=== PATIENT | female | born 1945 | race Caucasian/White ===

== ENCOUNTER 2017-05-14 13:54 | Emergency (ER) | payer MEDICARE, OTHER ==
[~2017-05-14] VITALS: Ht 160 cm; Wt 63.5 kg
[~2017-05-14 13:54] MED LIST: ALBI30PE SC; AMLO2.5T PO; AMLO5TAB2 GT; AMLO5TAB2 PO; ASP81CT PO; ASP81TEC PO; ASPI-84 PO; ATOR40TA70 PO; CIPR500T4 PO; DICL75TA2 PO; DIVA250T4 PO; DULO30CA3 PO; DULO60CA6; GLIP5TAB13 PO; HCT25T PO; HYDR-34 PO; HYDR-707 PO; HYDR1TAB PO; LINA5TAB PO; LORA0.5T PO; LVT.025T PO; MELO7.5T PO; METF-380 PO; NAPR500T72 PO; OLME20TA21 PO; SERT50TA2 PO; SIMV40TA2 PO
--- NOTE | 2017-05-14 14:14 | ED Integumentary General ---
General Stated Complaint: POSS INSECT BITE LEFT FOOT Source: patient, family Exam Limitations: no limitations History of Present Illness Time seen by provider: 14:08 Initial Comments This 72-year-old white female presents after sustaining a puncture wound, a sting, or a bite to the medial plantar surface of her left forefoot shortly prior to presentation emergency department. Patient has noted a 4 cm diameter area of erythema and tenderness surrounding an apparent puncture wound to the painful area. The patient was outside barefoot at the time of the injury. There is been no ascending lymphedema. There is no associated shortness of breath or respiratory distress. The patient is uncertain what caused the injury. The patient believes that her tetanus immunization is out of date. Allergies and Home Medications Allergies Coded Allergies: cortisone (Unverified Allergy, Mild, NAUSEA, 02/08/10) amoxicillin (Unverified Adverse Reaction, Severe, HIVES, 02/08/10) Home Medications Albiglutide 30 Mg/0.5 Ml Pen.injctr, 30 MG SC WEEK, #4 (Reported) Amlodipine Besylate 5 Mg Tab, 5 MG GT DAILY, (Reported) Atorvastatin Calcium 40 Mg Tablet, 40 MG PO HS, (Reported) Ciprofloxacin HCl 500 Mg Tablet, 500 MG PO BID, #14 Prescribed by: MATT PRICE on 09/26/16 2110 Divalproex Sodium 250 Mg Tablet.dr, 1 EACH PO BID, (Reported) Glipizide 5 Mg Tablet, 1 EACH PO BID, (Reported) Hydrochlorothiazide 25 Mg Tab, 25 MG PO DAILY, (Reported) Hydrocodone Bit/Acetaminophen 1 Ea Tablet, 1 EA PO Q4H, #1 Prescribed by: KASSIE KONG on 01/19/14 1220 Levothyroxine Sodium 25 Mcg Tablet, 25 MCG PO DAILY, Ref 0 (Reported) Metformin Hcl 1,000 Mg Tablet, 1,000 MG PO BID, Ref 0 (Reported) Constitutional: No chills, No fever EENTM: No blurred vision Respiratory: No cough, No short of breath Cardiovascular: No chest pain, No palpitations Gastrointestinal: No abdominal pain, No diarrhea, No vomiting Genitourinary: no symptoms reported : No Musculoskeletal: No back pain Skin: see HPI, rash, other (4 cm area of erythema over the medial aspect of the mid forefoot on the left foot. There is an apparent puncture wound to the central portion of the erythematous area.) Psychiatric/Neurological: No Symptoms Reported Endocrine: No Symptoms Reported Past Loakgre-Rqhzti-Ajfmms Hx Patient Social History Recent Foreign Travel: No Contact w/Someone Who Travel: No Recent Hopitalizations: No Immunizations Up To Date Date of Pneumonia Vaccine: Jul 27, 2011 Seasonal Allergies Seasonal Allergies: No Surgeries HX Surgeries: Yes (HEART CATH, FOOT SURGERY) Surgeries: Appendectomy, Hysterectomy Respiratory Hx Respiratory Disorders: No Cardiovascular Hx Cardiac Disorders: Yes (HIGH CHOLESTEROL) Neurological Hx Neurological Disorders: No Reproductive System Hx Reproductive Disorders: No Sexually Transmitted Disease: No Genitourinary Hx Genitourinary Disorders: No Gastrointestinal Hx Gastrointestinal Disorders: No Musculoskeletal Hx Musculoskeletal Disorders: Yes (ARTHRITIS) Endocrine Hx Endocrine Disorders: Yes Endocrine Disorders: Diabetes, Non-Insulin dep HEENT HX ENT Disorders: No Cancer Hx Cancer: No Psychosocial Hx Psychiatric Problems: Yes Behavioral Health Disorders: Anxiety, Depression Integumentary HX Skin/Integumentary Disorder: No Blood Transfusions Hx Blood Disorders: No Adverse Reaction to a Blood Tr: No Reviewed Nursing Assessment Reviewed/Agree w Nursing PMH: Yes Family Medical History Significant Family History: No Pertinent Family Hx Physical Exam Vital Signs Vital Sign - Last 12Hours 05/14/17 14:24 Temp 98.6 Pulse 84 Resp 18 B/P (MAP) 152/84 Pulse Ox 97 Capillary Refill : General Appearance: WD/WN, no apparent distress HEENT: normal ENT inspection Neck: normal inspection Cardiovascular: regular rate, rhythm Respiratory: lungs clear Gastrointestinal: non tender Back: normal inspection Extremities: normal range of motion, non-tender Neurologic/Psychiatric: no motor/sensory deficits, normal mood/affect Skin: normal color, warm/dry, other (4 cm erythematous area over the medial aspect left forefoot with a central puncture wound.) Skin Problem Location: lower extremities Skin Problem Character: erythema, warm Progress/Results/Core Measures Results/Orders My Orders Orders - MARSHA MARSH MD Diphenhydramine Injection (Benadryl Inje (05/14/17 14:15) Dipht,Pertuss(Acell),Tet Adult (Boostrix (05/14/17 14:15) Foot, Left, 3 Views (05/14/17 14:06) Medications Given in ED Current Medications Medications Dose Ordered Sig/Zari Route Start Time Stop Time Status Last Admin Dose Admin Diphenhydramine HCl 25 mg ONCE ONCE IM 05/14/17 14:15 05/14/17 14:16 DC 05/14/17 14:39 25 MG Vital Signs/I&O Vital Sign - Last 12Hours 05/14/17 14:24 Temp 98.6 Pulse 84 Resp 18 B/P (MAP) 152/84 Pulse Ox 97 Progress Note : Time: 14:14 Progress Note The patient received 25 mg of Benadryl IM. She was offered TDap for her tetanus immunization. 2:54 pm The patient declined tetanus update. X-ray was taken of her left foot which failed to demonstrate evidence of radiopaque foreign body. The patient was symptomatically improved with the Benadryl. I recommended that she continue with Benadryl at home 25-50 mg every 3-4 hours as needed. I invited her to return to emergency should any further problems or questions. Departure Impression Impression: Primary Impression: Insect sting Qualified Codes: T63.481A - Toxic effect of venom of other arthropod, accidental (unintentional), initial encounter Disposition: 01 HOME, SELF-CARE Condition: Improved Departure-Patient Inst. Decision time for Depature: 14:56 Referrals: MARJ DELANEY MD (PCP/Family) Primary Care Physician Patient Instructions: Insect Bites and Stings (DC) Add. Discharge Instructions: Benadryl as prescribed. Return if have any further questions or problems. Follow-up with your caregivers on Wednesday. MARSHA MARSH MD May 14, 2017 14:14
[2017-05-14] MEDS ORDERED: TETANUS,DIPTH,PERTUSS P/F (BOOSTRIX) 0.5 ML VIAL IM ONE (14:15)
[2017-05-14] MEDS ORDERED: diphenhydrAMINE 50 MG/ML INJ (BENADRYL) IM ONE (14:15)
[2017-05-14 15:20] VITALS: BP 142/80
--- NOTE | 2017-05-14 15:31 | Diagnostic Imaging Report ---
INDICATION: Left foot pain after potential penetrating trauma. COMPARISON: None available. TECHNIQUE: Three views of the left foot were performed. FINDINGS AND IMPRESSION: 1. No radiopaque foreign body. 2. No fracture or osseous erosion to suggest osteomyelitis. 3. Mild degenerative changes at the tarsal/metatarsal articulations. Dictated by: Dictated on workstation # [id number]
== END 2017-05-14 15:20 | disposition home or self-care (01) ==
LOC: EDUNIT# 13:54 → ER 13:57
DX: T63.481A Toxic effect of venom of other arthropod, accidental (unintentional), initial encounter (principal); E78.00 Pure hypercholesterolemia, unspecified; M19.90 Unspecified osteoarthritis, unspecified site; E11.9 Type 2 diabetes mellitus without complications; F41.9 Anxiety disorder, unspecified; F32.9 Major depressive disorder, single episode, unspecified; Z90.710 Acquired absence of both cervix and uterus; Z90.89 Acquired absence of other organs; Z79.84 Long term (current) use of oral hypoglycemic drugs
CPT/HCPCS: 73630; 96372; 99284

== ENCOUNTER 2017-05-16 12:11 | Emergency (ER) | payer MEDICARE, OTHER ==
[~2017-05-16] VITALS: Ht 160 cm; Wt 63.5 kg
--- NOTE | 2017-05-16 14:52 | ED Lower Extremity ---
General Chief Complaint: Lower Extremity Stated Complaint: LEFT FOOT PAIN Nursing Triage Note: pt reports she stepped on something on wednesday evening. left foot swelling immediately. she was seen in ER approx 1 hr after incident. she was given bendaryl injection. she has been taking benadryl at home. she reports redness , swelling et itching worsening. Nursing Sepsis Screen: No Definite Risk Source: patient Exam Limitations: no limitations History of Present Illness Time seen by provider: 14:47 Initial Comments The patient is a 72-year-old white female who was here Wednesday evening or this same problem. She reports that she was barefoot in the grass of her lawn and felt a sharp stinging sensation along the arch of her left foot at the proximal metatarsal level. She was given a shot of Benadryl here and has been taking 50 mg of Benadryl by mouth every 4 hours. She is frankly about the itching at this point. She reports that the erythema has spread somewhat over the dorsum of her foot. She protests that she is allergic to cortisone. Onset: last week Pain/Injury Location: left foot Method of Injury: other (suspect bee sting) Allergies and Home Medications Allergies Coded Allergies: cortisone (Unverified Allergy, Mild, NAUSEA, 02/08/10) amoxicillin (Unverified Adverse Reaction, Severe, HIVES, 02/08/10) Home Medications Albiglutide 30 Mg/0.5 Ml Pen.injctr, 30 MG SC WEEK, #4 (Reported) Amlodipine Besylate 5 Mg Tab, 5 MG GT DAILY, (Reported) Atorvastatin Calcium 40 Mg Tablet, 40 MG PO HS, (Reported) Ciprofloxacin HCl 500 Mg Tablet, 500 MG PO BID, #14 Prescribed by: MATT PRICE on 09/26/160 Divalproex Sodium 250 Mg Tablet.dr, 1 EACH PO BID, (Reported) Glipizide 5 Mg Tablet, 1 EACH PO BID, (Reported) Hydrochlorothiazide 25 Mg Tab, 25 MG PO DAILY, (Reported) Hydrocodone Bit/Acetaminophen 1 Ea Tablet, 1 EA PO Q4H, #1 Prescribed by: KASSIE KONG on 01/19/14 1220 Levothyroxine Sodium 25 Mcg Tablet, 25 MCG PO DAILY, Ref 0 (Reported) Metformin Hcl 1,000 Mg Tablet, 1,000 MG PO BID, Ref 0 (Reported) Constitutional: see HPI EENTM: no symptoms reported Respiratory: no symptoms reported Cardiovascular: no symptoms reported Gastrointestinal: no symptoms reported Genitourinary: no symptoms reported Musculoskeletal: no symptoms reported Skin: see HPI Psychiatric/Neurological: No Symptoms Reported Past Xdwzmhq-Eqoibb-Sajhos Hx Patient Social History Recent Foreign Travel: No Contact w/Someone Who Travel: No Recent Infectious Disease Expo: No Recent Hopitalizations: No Immunizations Up To Date Date of Pneumonia Vaccine: Jul 27, 2011 Seasonal Allergies Seasonal Allergies: No Surgeries HX Surgeries: Yes (HEART CATH, FOOT SURGERY) Surgeries: Appendectomy, Hysterectomy, Orthopedic Respiratory Hx Respiratory Disorders: No Cardiovascular Hx Cardiac Disorders: Yes (HIGH CHOLESTEROL) Cardiac Disorders: High Cholesterol, Hypertension Neurological Hx Neurological Disorders: No Reproductive System Hx Reproductive Disorders: No Sexually Transmitted Disease: No Genitourinary Hx Genitourinary Disorders: No Gastrointestinal Hx Gastrointestinal Disorders: No Musculoskeletal Hx Musculoskeletal Disorders: Yes (ARTHRITIS) Endocrine Hx Endocrine Disorders: Yes Endocrine Disorders: Hypothyroidsim, Diabetes, Non-Insulin dep HEENT HX ENT Disorders: No Cancer Hx Cancer: No Psychosocial Hx Psychiatric Problems: Yes Behavioral Health Disorders: Anxiety, Depression Integumentary HX Skin/Integumentary Disorder: No Blood Transfusions Hx Blood Disorders: No Adverse Reaction to a Blood Tr: No Family Medical History Significant Family History: No Pertinent Family Hx Physical Exam Vital Signs Vital Sign - Last 12Hours 05/16/17 12:46 Temp 98.7 Pulse 84 Resp 16 B/P (MAP) 183/79 Capillary Refill : Less Than 3 Seconds General Appearance: mild distress HEENT: normal ENT inspection Neck: full range of motion Cardiovascular: normal peripheral pulses Respiratory: chest non-tender, lungs clear, normal breath sounds, no respiratory distress, no accessory muscle use Comments Examination of the left foot shows a small papule along the medial border of the foot at the sole plate at approximately the proximal first metatarsal. There is erythema extending to the medial sole and extending dorsally to the fourth metatarsal. Proximally it reaches the level of the tarsal bones. This has the appearance of a bee sting with localized urticaria Progress/Results/Core Measures Results/Orders Vital Signs/I&O Vital Sign - Last 12Hours 05/16/17 12:46 Temp 98.7 Pulse 84 Resp 16 B/P (MAP) 183/79 Blood Pressure Mean: 113 Departure Impression Impression: Primary Impression: localized histamine reaction most likely bee sting Disposition: HOME, SELF-CARE Condition: Stable/Unchanged Departure-Patient Inst. Decision time for Depature: 14:52 Referrals: MARJ DELANEY MD (PCP/Family) Primary Care Physician Add. Discharge Instructions: All discharge instructions reviewed with patient and/or family. Voiced understanding. 1.continue cool compresses 2.apply triamcinolone every 6 hours 3.continue Benadryl 4.this may take several days to resolve. Scripts Triamcinolone Acetonide (Triamcinolone Acetonide 0.5% Ointment) 15 Gm Oint 15 GM TP 4 TIMES A DAY, #1 TUBE Prov: ANDERSON BELL MD 05/16/17 ANDERSON BELL MD May 16, 2017 14:52
[2017-05-16] MEDS ORDERED: TRIA15OI9 TP (14:55)
[2017-05-16 15:24] VITALS: BP 183/79
== END 2017-05-16 15:23 | disposition home or self-care (01) ==
LOC: EDUNIT# 12:11 → ER 12:12
DX: Z04.3 Encounter for examination and observation following other accident (principal)
CPT/HCPCS: 99283

== ENCOUNTER 2019-07-06 09:58 | Emergency (ER) | payer MEDICARE, OTHER ==
[~2019-07-06] VITALS: Ht 161 cm; Wt 72.0 kg
[~2019-07-06 09:58] MED LIST changes: -ALBI30PE SC; +ALBI30PE3 SC; +TRIA15OI9 TP
[2019-07-06] MEDS ORDERED: DEXAMETHASONE 10 MG/ML (DECADRON) 1 ML VIAL IM ONE (10:30)
[2019-07-06] MEDS ORDERED: DOXY100T2 PO (10:31)
--- NOTE | 2019-07-06 10:31 | ED Integumentary General ---
General Chief Complaint: Bite-Animal/Human/Insect Stated Complaint: WASP STING Nursing Triage Note: pt presents to ed with complaints of l upper arm pain/redness/swelling after being stung by a wasp on 07/04/19 when she was near her trashcan. pt reports she has used over the counter anti itch cream with no relief. Source: patient Exam Limitations: no limitations History of Present Illness Date Seen by Provider: Jul 06, 2019 Time Seen by Provider: 10:28 Initial Comments to ER with reports of redness swelling itching and pain to the medial aspect of the left upper arm and the dorsal aspect proximal phalanx right middle finger where she was stung by a wasp 3 days ago. Timing/Duration: constant Severity: moderate Location: hands Associated Symptoms: denies symptoms Allergies and Home Medications Allergies Coded Allergies: cortisone (Unverified Allergy, Mild, NAUSEA, 02/08/10) amoxicillin (Unverified Adverse Reaction, Severe, HIVES, 02/08/10) Home Medications Amlodipine Besylate 5 Mg Tab, 5 MG GT DAILY, (Reported) Atorvastatin Calcium 40 Mg Tablet, 40 MG PO HS, (Reported) Divalproex Sodium 250 Mg Tablet.dr, 1 EACH PO BID, (Reported) Glipizide 5 Mg Tablet, 1 EACH PO BID, (Reported) Hydrochlorothiazide 25 Mg Tab, 25 MG PO DAILY, (Reported) Hydrocodone Bit/Acetaminophen 1 Ea Tablet, 1 EA PO Q4H Prescribed by: KASSIE KONG on 01/19/14 1220 Levothyroxine Sodium 25 Mcg Tablet, 25 MCG PO DAILY, (Reported) Metformin Hcl 1,000 Mg Tablet, 1,000 MG PO BID, (Reported) Patient Home Medication List Home Medication List Reviewed: Yes Review of Systems Review of Systems Constitutional: see HPI EENTM: see HPI Respiratory: no symptoms reported Cardiovascular: no symptoms reported Genitourinary: no symptoms reported Musculoskeletal: no symptoms reported Skin: see HPI Psychiatric/Neurological: No Symptoms Reported Past Jpilknp-Uzaixz-Vxontp Hx Patient Social History Alcohol Use: Denies Use Recreational Drug Use: No Smoking Status: Never a Smoker Recent Foreign Travel: No Contact w/Someone Who Travel: No Recent Infectious Disease Expo: No Recent Hopitalizations: No Physical Abuse: No Sexual Abuse: No Mistreated: No Fear: No Immunizations Up To Date Date of Pneumonia Vaccine: Jul 27, 2011 Seasonal Allergies Seasonal Allergies: No Past Medical History Surgeries: Yes (HEART CATH, FOOT SURGERY) Appendectomy, Hysterectomy, Orthopedic Respiratory: Yes Chronic Bronchitis Cardiac: Yes (HIGH CHOLESTEROL) High Cholesterol, Hypertension Neurological: No Reproductive Disorders: No Sexually Transmitted Disease: No Genitourinary: Yes ("weak bladder") Gastrointestinal: No Musculoskeletal: Yes (ARTHRITIS) Endocrine: Yes Hypothyroidsim, Diabetes, Non-Insulin dep Cancer: No Psychosocial: Yes Anxiety, Depression Integumentary: No Blood Disorders: No Adverse Reaction/Blood Tranf: No Family Medical History No Pertinent Family Hx Physical Exam Vital Signs Vital Signs - First Documented 07/06/19 10:07 Temp 37.0 Pulse 96 Resp 16 B/P (MAP) 165/113 (130) Pulse Ox 97 Capillary Refill : Less Than 3 Seconds General Appearance: no apparent distress Respiratory: no respiratory distress, no accessory muscle use Extremities: normal range of motion, non-tender, other (there is a large hand- sized area to the medial aspect of the left upper arm well demarcated without lymphangitis. This is erythematous and somewhat indurated/swollen. Suspect this to be localized allergic reaction from the wasp sting rather than cellulitis.) Neurologic/Psychiatric: alert, normal mood/affect, oriented x 3 Skin: normal color, warm/dry Progress/Results/Core Measures Results/Orders My Orders Orders - DELFINA BENJAMIN APRN Dexamethasone Injection (Decadron Inject (07/06/19 10:30) Vital Signs/I&O 07/06/19 10:07 Temp 37.0 Pulse 96 Resp 16 B/P (MAP) 165/113 (130) Pulse Ox 97 Blood Pressure Mean: 130 Departure Impression Primary Impression: Bee sting Qualified Codes: T63.441A - Toxic effect of venom of bees, accidental (unintentional), initial encounter Disposition: HOME, SELF-CARE Condition: Stable Departure-Patient Inst. Decision time for Depature: 10:30 Referrals: MARJ DELANEY MD (PCP/Family) Primary Care Physician Patient Instructions: Insect Bites and Stings (DC) Add. Discharge Instructions: 1. Cool compresses to the area. Take one Benadryl every 6 hours as needed for itching. This will also help reduce the redness and swelling. Antibiotics as directed. All discharge instructions reviewed with patient and/or family. Voiced understanding. Scripts Doxycycline Hyclate (Doxycycline Hyclate) 100 Mg Tablet 100 MG PO BID, #10 TAB 0 Refills Prov: DELFINA BENJAMIN APRN 07/06/19 DELFINA BENJAMIN APRN Jul 06, 2019 10:31
[2019-07-06 10:47] VITALS: BP 153/98
== END 2019-07-06 10:47 | disposition home or self-care (01) ==
LOC: EDUNIT# 09:58 → ER 09:59
DX: T63.441A Toxic effect of venom of bees, accidental (unintentional), initial encounter (principal); J42 Unspecified chronic bronchitis; I10 Essential (primary) hypertension; E78.00 Pure hypercholesterolemia, unspecified; E03.9 Hypothyroidism, unspecified; E11.9 Type 2 diabetes mellitus without complications; F41.9 Anxiety disorder, unspecified; F32.9 Major depressive disorder, single episode, unspecified; Z88.1 Allergy status to other antibiotic agents; Z88.8 Allergy status to other drugs, medicaments and biological substances; Z79.84 Long term (current) use of oral hypoglycemic drugs; Z90.49 Acquired absence of other specified parts of digestive tract; Z90.710 Acquired absence of both cervix and uterus
CPT/HCPCS: 99284

== ENCOUNTER 2021-03-24 22:31 | Observation (INO) | payer MEDICARE, OTHER ==
[~2021-03-24] VITALS: Ht 160 cm; Wt 80.4 kg
[~2021-03-24 22:31] MED LIST changes: -CIPR500T4 PO; +CIPR500T5 PO; +DOXY100T2 PO
[2021-03-24] MEDS ORDERED: INSU100I14 SC (22:39)
[2021-03-24] MEDS ORDERED: LISI10TA25 PO (22:39)
[2021-03-24] MEDS ORDERED: INSU100I32 SC (22:39)
--- NOTE | 2021-03-24 22:50 | ED General ---
General Chief Complaint: Glucose Problems Stated Complaint: BLOOD SUGAR LOW,30-40,EMS GAVE PT GLUCOSE Source of Information: Patient Exam Limitations: No Limitations History of Present Illness Date Seen by Provider: March 24, 2021 Time Seen by Provider: 22:30 Initial Comments Patient presents ER by private conveyance with her grandson chief complaint that she had a fall he responded immediately to her and noticed that her blood sugar was low. He summonsed EMS and they gave her some glucose oral as well as peanut butter and got her blood sugar up from 38-40. He decided then to transport her by POV to the ER. No history of fevers chills nausea vomiting diarrhea constipation cough or shortness of air. Allergies and Home Medications Allergies Coded Allergies: cortisone (Unverified Allergy, Mild, NAUSEA, 02/08/10) amoxicillin (Unverified Adverse Reaction, Severe, HIVES, 02/08/10) Home Medications Atorvastatin Calcium 40 Mg Tablet, 40 MG PO HS, (Reported) Last Action: Reviewed Glipizide 10 Mg Tablet, 10 MG PO DAILY, (Reported) Last Action: Reviewed Levothyroxine Sodium 25 Mcg Tablet, 25 MCG PO DAILY, (Reported) Lisinopril 10 Mg Tablet, DAILY, (Reported) Last Action: Edited Patient Home Medication List Home Medication List Reviewed: Yes Review of Systems Review of Systems Constitutional: No chills; dizziness; No fever; malaise EENTM: No ear discharge, No ear pain Respiratory: No cough, No short of breath Cardiovascular: No chest pain, No edema Gastrointestinal: No abdominal pain, No nausea, No vomiting Genitourinary: No discharge, No dysuria Musculoskeletal: No back pain, No joint pain All Other Systems Reviewed Negative Unless Noted: Yes Past Njbdwwb-Lplsri-Esozvq Hx Patient Social History Alcohol Use: Denies Use Smoking Status: Never a Smoker Recent Hopitalizations: No Immunizations Up To Date Date of Pneumonia Vaccine: Jul 27, 2011 Seasonal Allergies Seasonal Allergies: No Past Medical History Surgeries: Yes (HEART CATH, FOOT SURGERY) Appendectomy, Hysterectomy, Orthopedic Respiratory: Yes Chronic Bronchitis Cardiac: Yes (HIGH CHOLESTEROL) High Cholesterol, Hypertension Neurological: No Reproductive Disorders: No Sexually Transmitted Disease: No Genitourinary: Yes ("weak bladder") Gastrointestinal: No Musculoskeletal: Yes (ARTHRITIS) Endocrine: Yes Hypothyroidsim, Diabetes, Non-Insulin dep Cancer: No Psychosocial: Yes Anxiety, Depression Integumentary: No Blood Disorders: No Adverse Reaction/Blood Tranf: No Family Medical History No Pertinent Family Hx Physical Exam Vital Signs Vital Signs - First Documented 03/24/21 22:36 Temp 36.3 Pulse 80 Resp 18 B/P (MAP) 186/92 (123) Pulse Ox 99 O2 Delivery Room Air Capillary Refill : Height, Weight, BMI Height: 5'3.00" Weight: 140lbs. oz. 63.383279hy; 27.00 BMI Method:Stated General Appearance: No Apparent Distress, Mild Distress Eyes: Bilateral Eye Normal Inspection, Bilateral Eye PERRL, Bilateral Eye EOMI HEENT: TMs Normal, Normal ENT Inspection, Pharynx Normal, Moist Mucous Membranes Neck: Full Range of Motion, Normal Inspection Respiratory: Lungs Clear, Normal Breath Sounds, No Accessory Muscle Use, No Respiratory Distress Cardiovascular: Regular Rate, Rhythm, No Edema, Normal Peripheral Pulses Gastrointestinal: Non Tender, Soft Extremity: Normal Capillary Refill, Normal Inspection Neurologic/Psychiatric: Alert, Oriented x3 Skin: Normal Color, Warm/Dry Progress/Results/Core Measures Suspected Sepsis SIRS Temperature: Pulse: Respiratory Rate: Laboratory Tests 03/24/21 22:40: White Blood Count 10.0 Blood Pressure / Mean: Laboratory Tests 03/24/21 22:40: Creatinine 0.81, Platelet Count 209, Total Bilirubin 0.4 Results/Orders Lab Results Laboratory Tests Test 03/24/21 22:39 03/24/21 22:40 03/24/21 23:20 03/25/21 00:16 Range/Units Glucometer 42 *L 116 H 70-110 MG/DL White Blood Count 10.0 4.3-11.0 10^3/uL Red Blood Count 4.76 3.80-5.11 10^6/uL Hemoglobin 14.3 11.5-16.0 g/dL Hematocrit 43 35-52 % Mean Corpuscular Volume 90 80-99 fL Mean Corpuscular Hemoglobin 30 25-34 pg Mean Corpuscular Hemoglobin Concent 33 32-36 g/dL Red Cell Distribution Width 12.3 10.0-14.5 % Platelet Count 209 130-400 10^3/uL Mean Platelet Volume 10.3 9.0-12.2 fL Immature Granulocyte % (Auto) 0 % Neutrophils (%) (Auto) 83 H 42-75 % Lymphocytes (%) (Auto) 9 L 12-44 % Monocytes (%) (Auto) 7 0-12 % Eosinophils (%) (Auto) 1 0-10 % Basophils (%) (Auto) 0 0-10 % Neutrophils # (Auto) 8.3 H 1.8-7.8 10^3/uL Lymphocytes # (Auto) 0.9 L 1.0-4.0 10^3/uL Monocytes # (Auto) 0.7 0.0-1.0 10^3/uL Eosinophils # (Auto) 0.1 0.0-0.3 10^3/uL Basophils # (Auto) 0.0 0.0-0.1 10^3/uL Immature Granulocyte # (Auto) 0.0 0.0-0.1 10^3/uL Sodium Level 144 135-145 MMOL/L Potassium Level 3.4 L 3.6-5.0 MMOL/L Chloride Level 105 98-107 MMOL/L Carbon Dioxide Level 24 21-32 MMOL/L Anion Gap 15 H 5-14 MMOL/L Blood Urea Nitrogen 22 H 7-18 MG/DL Creatinine 0.81 0.60-1.30 MG/DL Estimat Glomerular Filtration Rate > 60 BUN/Creatinine Ratio 27 Glucose Level 50 *L 70-105 MG/DL Calcium Level 9.9 8.5-10.1 MG/DL Corrected Calcium 9.7 8.5-10.1 MG/DL Total Bilirubin 0.4 0.1-1.0 MG/DL Aspartate Amino Transf (AST/SGOT) 54 H 5-34 U/L Alanine Aminotransferase (ALT/SGPT) 26 0-55 U/L Alkaline Phosphatase 61 40-136 U/L Total Protein 7.3 6.4-8.2 GM/DL Albumin 4.2 3.2-4.5 GM/DL Urine Color YELLOW Urine Clarity CLEAR Urine pH 6.0 5-9 Urine Specific Hines 1.025 H 1.016-1.022 Urine Protein NEGATIVE NEGATIVE Urine Glucose (UA) NEGATIVE NEGATIVE Urine Ketones NEGATIVE NEGATIVE Urine Nitrite POSITIVE H NEGATIVE Urine Bilirubin NEGATIVE NEGATIVE Urine Urobilinogen 0.2 < = 1.0 MG/DL Urine Leukocyte Esterase 2+ H NEGATIVE Urine RBC (Auto) NEGATIVE NEGATIVE Urine RBC NONE /HPF Urine WBC 10-25 H /HPF Urine Squamous Epithelial Cells 2-5 /HPF Urine Crystals NONE /LPF Urine Bacteria LARGE H /HPF Urine Casts NONE /LPF Urine Mucus NEGATIVE /LPF Urine Culture Indicated YES My Orders Orders - BYRON MACIAS Accucheck Stat ONCE (03/24/21 22:34) General/Regular (03/24/21 Dinner) Cbc With Automated Diff (03/24/21 22:41) Comprehensive Metabolic Panel (03/24/21 22:41) Ua Culture If Indicated (03/24/21 22:41) Chest 1 View, Ap/Pa Only (03/24/21 22:41) Ct Head/Cervical Spine Wo (03/24/21 22:41) Accucheck Stat ONCE (03/24/21 23:13) Urine Culture (03/25/21 00:16) Vital Signs/I&O 03/24/21 22:36 Temp 36.3 Pulse 80 Resp 18 B/P (MAP) 186/92 (123) Pulse Ox 99 O2 Delivery Room Air Capillary Refill : Point of Care Testing Finger Stick Blood Glucose: 42 Blood Glucose Action Taken: ERP NOTIFIED Progress Note : Time: 00:29 Progress Note After meal the patient's blood sugar went up to 116. We will recommend observing her for her hypoglycemia so we can get an MRI in the morning Departure Communication (Admissions) Time/Spoke to Admitting Phy: 00:[address] Bryant and she agrees to observation in ICU or stepdown if not available and consultation to trauma surgery. Imaging in the morning. D5 normal saline. Time/Spoke to Consulting Phy: 00:30 Discussed case with trauma surgeon on-call Dr. Patten and he agrees to consult on the case can MRI with and without IV contrast of the brain in the morning. Neurochecks and call him if anything changes in her neuro status. Impression Primary Impression: Hypoglycemia associated with diabetes Additional Impressions: Brain lesion (from injury) Fall Qualified Codes: W19.XXXA - Unspecified fall, initial encounter Disposition: ADMITTED INPATIENT Condition: Stable Admissions Decision to Admit Reason: Admit from ER (General) Decision to Admit/Date: March 24, 2021 Time/Decision to Admit Time: 23:00 Departure-Patient Inst. Referrals: MARJ DELANEY MD (PCP/Family) Primary Care Physician BYRON MACIAS March 24, 2021 22:50
[2021-03-24 22:55] LABS: BASOPHILS % (AUTO) 0 % (0-10); EOSINOPHILS # (AUTO) 0.1 10^3/uL (0.0-0.3); EOSINOPHILS % (AUTO) 1 % (0-10); HEMATOCRIT 43 % (35-52); HEMOGLOBIN 14.3 g/dL (11.5-16.0); LYMPHOCYTES # (AUTO) 0.9 10^3/uL (1.0-4.0); LYMPHOCYTES % (AUTO) 9 % (12-44); MEAN CORPUSCULAR HEMOGLOBIN 30 pg (25-34); MEAN CORPUSCULAR HGB CONC 33 g/dL (32-36); MEAN CORPUSCULAR VOLUME 90 fL (80-99); MEAN PLATELET VOLUME 10.3 fL (9.0-12.2); MONOCYTES # (AUTO) 0.7 10^3/uL (0.0-1.0); MONOCYTES % (AUTO) 7 % (0-12); NEUTROPHILS # (AUTO) 8.3 10^3/uL (1.8-7.8); NEUTROPHILS % (AUTO) 83 % (42-75); PLATELET COUNT 209 10^3/uL (130-400)
[2021-03-24 23:09] LABS: ALBUMIN 4.2 GM/DL (3.2-4.5); CHLORIDE 105 MMOL/L (98-107); POTASSIUM 3.4 MMOL/L (3.6-5.0); SODIUM 144 MMOL/L (135-145)
[2021-03-24 23:10] LABS: CALCIUM 9.9 MG/DL (8.5-10.1)
[2021-03-24 23:12] LABS: TOTAL PROTEIN 7.3 GM/DL (6.4-8.2)
[2021-03-24 23:13] LABS: BILIRUBIN,TOTAL 0.4 MG/DL (0.1-1.0); CARBON DIOXIDE 24 MMOL/L (21-32)
[2021-03-24 23:15] LABS: ALKALINE PHOSPHATASE 61 U/L (40-136); CREATININE SERUM 0.81 MG/DL (0.60-1.30); GFR ESTIMATED > 60
[2021-03-24] MEDS ORDERED: CATHETER FLUSH 10 ML SYR IV PRN (23:15)
[2021-03-24] MEDS ORDERED: IOHEXOL 350 MG/ML 100 ML (OMNIPAQUE 350) VIAL IV ONE (23:15)
[2021-03-24] MEDS ORDERED: HOLD METFORMIN - RECEIVED CONTRAST 20 ML VIAL IV SCH (23:15)
[2021-03-24] MEDS ORDERED: NS 100 ML (IVPB) BAG IV ONE (23:15)
[2021-03-24 23:16] LABS: BUN/CREATININE RATIO 27
[2021-03-24 23:18] LABS: ALANINE AMINOTRANSFERASE 26 U/L (0-55)
[2021-03-24 23:22] LABS: GLUCOSE 50 MG/DL (70-105)
[2021-03-25 00:25] LABS: BILIRUBIN,URINE NEGATIVE (NEGATIVE); CLARITY,URINE CLEAR; COLOR,URINE YELLOW; GLUCOSE, URINE (UA) NEGATIVE (NEGATIVE); KETONES,URINE NEGATIVE (NEGATIVE); LEUKOCYTE ESTERASE ,URINE 2+ (NEGATIVE); NITRITE,URINE POSITIVE (NEGATIVE); PROTEIN,URINE NEGATIVE (NEGATIVE)
[2021-03-25 00:44] LABS: BACTERIA,URINE LARGE /HPF
[2021-03-25] MEDS ORDERED: D5 1/2 NS 1000 ML IV SOLUTION 1,000 ML IV ONE (01:16)
[2021-03-25] MEDS ORDERED: D5 NS 1000 ML IV SOLUTION 1,000 ML IV SCH (01:30)
[2021-03-25] MEDS ORDERED: fentaNYL INJ 100 MCG/2 ML AMP IV PRN (01:30)
[2021-03-25] MEDS ORDERED: ONDANSETRON 4 MG/2 ML (SDV) Z0FRAN IV PRN (01:30)
[2021-03-25] MEDS ORDERED: GLIP10TA13 PO (02:57)
[2021-03-25 03:38] LABS: BASOPHILS % (AUTO) 0 % (0-10); EOSINOPHILS % (AUTO) 1 % (0-10); HEMATOCRIT 39 % (35-52); HEMOGLOBIN 13.1 g/dL (11.5-16.0); LYMPHOCYTES # (AUTO) 1.1 10^3/uL (1.0-4.0); LYMPHOCYTES % (AUTO) 14 % (12-44); MEAN CORPUSCULAR HEMOGLOBIN 30 pg (25-34); MEAN CORPUSCULAR HGB CONC 34 g/dL (32-36); MEAN CORPUSCULAR VOLUME 90 fL (80-99); MONOCYTES # (AUTO) 0.5 10^3/uL (0.0-1.0); MONOCYTES % (AUTO) 6 % (0-12); NEUTROPHILS # (AUTO) 6.5 10^3/uL (1.8-7.8); NEUTROPHILS % (AUTO) 79 % (42-75); PLATELET COUNT 203 10^3/uL (130-400); WHITE BLOOD COUNT 8.2 10^3/uL (4.3-11.0)
[2021-03-25 03:44] LABS: CHLORIDE 105 MMOL/L (98-107); POTASSIUM 4.1 MMOL/L (3.6-5.0); SODIUM 140 MMOL/L (135-145)
[2021-03-25 03:45] LABS: CALCIUM 9.2 MG/DL (8.5-10.1); GLUCOSE 233 MG/DL (70-105)
[2021-03-25 03:47] LABS: CARBON DIOXIDE 22 MMOL/L (21-32)
[2021-03-25 03:49] LABS: CREATININE SERUM 0.78 MG/DL (0.60-1.30); GFR ESTIMATED > 60
[2021-03-25 03:50] LABS: BUN/CREATININE RATIO 28
--- NOTE | 2021-03-25 06:08 | History & Physical-Hospitalist ---
History of Present Illness HPI/Chief Complaint CC: Hypoglycemia with fall questionable hemorrhagic stroke HPI: This is a 76yoWF clinic pt of Dr. Moncada who has a past medical history of DM who suffered some hypoglycemia last night, suffered a fall, presented to the ER, found to have a questionable hemorrhagic stroke in need of MRI to confirm. UTI was diagnosed, Rocephin given and home meds were restarted but I did lower her insulin dosing by half. She takes 40 units of Levemir and Novalog 12 units before meals. MRI will be completed and then if everything is within normal limits, will DC home. Source: patient Exam Limitations: no limitations Date Seen 03/25/21 Time Seen by a Provider: 09:00 Attending Physician Emily Bryant DO PCP Anshu Edwards MD Referring Physician Date of Admission Mar 25, 2021 at 00:45 Home Medications & Allergies Home Medications Reviewed patient Home Medication Reconciliation performed by pharmacy medication reconciliations quality technician and/or nursing. Patients Allergies have been reviewed. Allergies Allergies Coded Allergies cortisone (Unverified Allergy, Mild, NAUSEA, 02/08/10) amoxicillin (Unverified Adverse Reaction, Severe, HIVES, 02/08/10) Past Ooljscq-Ksbfjq-Aaclbk Hx Patient Social History Marrital Status: single Employed/Student: retired Tobacco Use?: No Smoking Status: Never a Smoker Use of E-Cig and/or Vaping dev: No Substance use?: No Alcohol Use?: No Pt feels they are or have been: No Immunizations Up To Date Date of Influenza Vaccine: Apr 08, 2020 First/Initial COVID19 Vaccinat: DATE UNKNOWN, BUT RECIEVED Second COVID19 Vaccination Lamberto: DATE UNKNOWN, BUT RECIEVED Tetanus Booster (TDap): Unknown Date of Pneumonia Vaccine: Jul 27, 2011 Seasonal Allergies Seasonal Allergies: No Current Status status: No status: No Advance Directives: No Communicates: Verbally Primary Language: Macedonian Preferred Spoken Language: Macedonian Is interpretation needed?: No Sensory deficits: Vision impairment Implanted or Applied Medical D: None Past Medical History Surgeries: Appendectomy, Hysterectomy, Orthopedic Chronic Bronchitis High Cholesterol, Hypertension Sexually Transmitted Disease: No Hypothyroidsim, Diabetes, Non-Insulin dep Anxiety, Depression Blood Disorders: No Adverse Reaction/Blood Tranf: No Family Medical History No Pertinent Family Hx Review of Systems Constitutional: see HPI, malaise, weakness Physical Exam Physical Exam Vital Signs Vital Signs - First Documented 03/24/21 22:36 Temp 36.3 Pulse 80 Resp 18 B/P (MAP) 186/92 (123) Pulse Ox 99 O2 Delivery Room Air Capillary Refill : Less Than 3 Seconds Height, Weight, BMI Height: 5'3.00" Weight: 140lbs. oz. 63.319690pz; 31.40 BMI Method:Stated General Appearance: No Apparent Distress, Chronically ill Eyes: Right Eye Normal Inspection, Right Eye PERRL HEENT: PERRL/EOMI, Normal ENT Inspection, Pharynx Normal, Moist Mucous Membranes Neck: Full Range of Motion, Normal Inspection, Non Tender Respiratory: Chest Non Tender, Lungs Clear, Normal Breath Sounds, No Accessory Muscle Use, No Respiratory Distress Cardiovascular: Regular Rate, Rhythm, No Edema, No Gallop, No JVD, No Murmur, Normal Peripheral Pulses Gastrointestinal: Normal Bowel Sounds, No Organomegaly, No Pulsatile Mass, Non Tender, Soft Back: Normal Inspection, No CVA Tenderness, No Vertebral Tenderness Extremity: Normal Capillary Refill, Normal Inspection, Normal Range of Motion, Non Tender, No Calf Tenderness, No Pedal Edema Neurologic/Psychiatric: Alert, Oriented x3, No Motor/Sensory Deficits, Normal Mood/Affect Skin: Normal Color, Warm/Dry Lymphatic: No Adenopathy Results Results/Procedures Labs Laboratory Tests 03/24/21 22:40 03/25/21 03:19 Patient resulted labs reviewed. Assessment/Plan Admission Diagnosis Assessment: Hypoglycemic episode with fall Questionable hemorrhagic CVA on CT scan awaiting MRI Acute UTI DM HTN Hypothyroidism Plan: MRI Decrease insulin Monitor closely Admission Status: Observation Diagnosis/Problems Diagnosis/Problems (1) Hypoglycemia associated with diabetes Status: Acute (2) Brain lesion (from injury) Status: Acute (3) Fall Status: Acute Qualifiers: Encounter type: initial encounter Qualified Codes: W19.XXXA - Unspecified fall, initial encounter (4) Urinary tract infection Status: Acute (5) Anxiety and depression Status: Acute EMILY BRYANT DO Mar 25, 2021 06:08
[2021-03-25] MEDS ORDERED: DEXTROSE 50% 50 ML (IMS) SYR IV PRN (06:45)
--- NOTE | 2021-03-25 06:50 | Diagnostic Imaging Report ---
CHEST 1 VIEW, AP/PA ONLY Indication: Fall Comparison: 09/26/2016 Findings: No focal airspace disease in the visualized lungs. Please note that the posterior lower lobes are poorly evaluated by portable radiography. No pleural effusion or pneumothorax. Normal cardiomediastinal silhouette. No displaced clavicular fracture. No discrete rib fracture. Impression: 1. No acute cardiopulmonary process by portable radiography. Dictated by: Dictated on workstation # [id number]
--- NOTE | 2021-03-25 07:12 | Diagnostic Imaging Report ---
PROCEDURE: CT head and CT cervical spine without contrast. TECHNIQUE: Multiple contiguous axial images were obtained through the brain and cervical spine without the use of intravenous contrast. Sagittal and coronal reformations through the cervical spine were then performed. Auto Exposure Controls were utilized during the CT exam to meet ALARA standards for radiation dose reduction. INDICATION: Trauma. COMPARISON: None available. FINDINGS: Head: Tiny hyperdense focus in the right luis-aspect of the sergio. Otherwise, no hemorrhage or space-occupying mass. No hydrocephalus or midline shift. No evidence of territorial infarct. Basilar cisterns are patent. No focal scalp swelling. No skull fracture. Patchy mucosal thickening within the ethmoid sinuses. Other paranasal sinuses are clear. Mastoid air cells are also clear. Orbits are normal. Cervical spine: No acute fracture or traumatic malalignment. Degenerative disc disease at C4-C5 and C5-C6 does not result in spinal stenosis. Airway is patent. No cervical lymphadenopathy. Visualized thyroid is normal. IMPRESSION: 1. Tiny hyperdensity in the right luis-aspect of the sergio is most likely artifactual or due to mineralization. Other potential etiologies would be a punctate focus of acute hemorrhage or cavernoma. MRI of the brain without and with IV contrast could be performed for further characterization. 2. No acute fracture or traumatic malalignment of the cervical spine. 3. Findings are in agreement with the preliminary report. Dictated by: Dictated on workstation # [id number]
[2021-03-25 08:30] VITALS: BP 148/70
[2021-03-25 08:32] VITALS: BP 160/78
[2021-03-25 08:35] VITALS: BP 171/80
[2021-03-25] MEDS ORDERED: AMLO-250 PO (10:07)
[2021-03-25] MEDS ORDERED: ATOR40TA70 PO (10:07)
[2021-03-25] MEDS ORDERED: IBUP-2185 PO (10:07)
[2021-03-25] MEDS ORDERED: GADOBUTROL 10 MMOL/10 ML (GADAVIST) VIAL IV ONE (10:45)
[2021-03-25] MEDS ORDERED: cefTRIAXone 1,000 MG in WATER (STERILE) FOR INJECTION 10 ML IV SCH (11:00)
--- NOTE | 2021-03-25 11:06 | Diagnostic Imaging Report ---
PROCEDURE: MR imaging of the brain with and without contrast. TECHNIQUE: Multiplanar, multisequence MR imaging of the brain was performed with and without contrast. INDICATION: Fall and weakness. COMPARISON: CT head from 03/24/2021. FINDINGS: No restricted diffusion to indicate acute infarct. No extra-axial fluid collection. No gradient blooming hypointensities to suggest intracranial hemorrhage. Within the right luis-aspect of sergio, there is a vague focus of T2 hyperintensity which has some wispy non-masslike enhancement present. There are no sites of concerning masslike or meningeal enhancement. No hydrocephalus. Major flow voids are preserved. Global atrophy is present. A small amount of periventricular and deep white matter FLAIR hyperintensities are present indicative of chronic microvascular ischemic disease. Pituitary and pineal regions are unremarkable. IMPRESSION: 1. No acute infarct. 2. 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 A subacute to chronic infarct is felt less likely given the hyperdense appearance on CT. 3. Mild chronic microvascular ischemic disease in the deep white matter. Dictated by: Dictated on workstation # [id number]
[2021-03-25] MEDS ORDERED: IBUPROFEN TABLET 200 MG TAB PO PRN (11:15)
[2021-03-25] MEDS ORDERED: INSU100I14 SC (11:17)
[2021-03-25] MEDS ORDERED: CEFD300C3 PO (11:17)
[2021-03-25] MEDS ORDERED: INSU100I32 SC (11:17)
--- NOTE | 2021-03-25 11:17 | Discharge Summary ---
Discharge Summary Hospital Course Was the Problem List Reviewed?: Yes Problems/Dx: (1) Hypoglycemia associated with diabetes Status: Acute Hospital Course Date of Admission: Mar 25, 2021 at 00:45 Admission Diagnosis : Family Physician/Provider: Anshu Edwards MD Date of Discharge: 03/25/21 Discharge Diagnosis: Hypoglycemia, fall, CT abnl MRI revealed no hemorrhagic CVA Hospital Course: Hospital Course: Pt had a short hospital course. She was admitted after a fall from hypoglycemia, D5 IV required, hypoglycemia resolved, insulin was adjusted and the MRI showed no evidence of any type of hemorrhagic stroke and she was discharged in improved condition with close follow up with Dr. Moncada. I did cut her insulin in half until she sees Dr. Moncada. Labs and Pending Lab Test: Laboratory Tests 03/24/21 22:39: Glucometer 42*L 03/24/21 22:40: White Blood Count 10.0, Red Blood Count 4.76, Hemoglobin 14.3, Hematocrit 43, Mean Corpuscular Volume 90, Mean Corpuscular Hemoglobin 30, Mean Corpuscular Hemoglobin Concent 33, Red Cell Distribution Width 12.3, Platelet Count 209, Mean Platelet Volume 10.3, Immature Granulocyte % (Auto) 0, Neutrophils (%) (Auto) 83H, Lymphocytes (%) (Auto) 9L, Monocytes (%) (Auto) 7, Eosinophils (%) (Auto) 1, Basophils (%) (Auto) 0, Neutrophils # (Auto) 8.3H, Lymphocytes # (Auto) 0.9L, Monocytes # (Auto) 0.7, Eosinophils # (Auto) 0.1, Basophils # (Auto) 0.0, Immature Granulocyte # (Auto) 0.0, Sodium Level 144, Potassium Level 3.4L, Chloride Level 105, Carbon Dioxide Level 24, Anion Gap 15H, Blood Urea Nitrogen 22H, Creatinine 0.81, Estimat Glomerular Filtration Rate > 60, BUN/Creatinine Ratio 27, Glucose Level 50*L, Calcium Level 9.9, Corrected Calcium 9.7, Total Bilirubin 0.4, Aspartate Amino Transf (AST/SGOT) 54H, Alanine Aminotransferase (ALT/SGPT) 26, Alkaline Phosphatase 61, Total Protein 7.3, Albumin 4.2 03/24/21 23:20: Glucometer 116H 03/25/21 00:16: Urine Color YELLOW, Urine Clarity CLEAR, Urine pH 6.0, Urine Specific [place] 1.025H, Urine Protein NEGATIVE, Urine Glucose (UA) NEGATIVE, Urine Ketones NEGATIVE, Urine Nitrite POSITIVEH, Urine Bilirubin NEGATIVE, Urine Urobilinogen 0.2, Urine Leukocyte Esterase 2+H, Urine RBC (Auto) NEGATIVE, Urine RBC NONE, Urine WBC 10-25H, Urine Squamous Epithelial Cells 2-5, Urine Crystals NONE, Urine Bacteria LARGEH, Urine Casts NONE, Urine Mucus NEGATIVE, Urine Culture Indicated YES 03/25/21 01:11: Glucometer 213H 03/25/21 02:07: Glucometer 200H 03/25/21 03:09: Glucometer 205H 03/25/21 03:19: White Blood Count 8.2, Red Blood Count 4.32, Hemoglobin 13.1, Hematocrit 39, Mean Corpuscular Volume 90, Mean Corpuscular Hemoglobin 30, Mean Corpuscular Hem oglobin Concent 34, Red Cell Distribution Width 12.3, Platelet Count 203, Mean Platelet Volume 10.0, Immature Granulocyte % (Auto) 0, Neutrophils (%) (Auto) 79H, Lymphocytes (%) (Auto) 14, Monocytes (%) (Auto) 6, Eosinophils (%) (Auto) 1, Basophils (%) (Auto) 0, Neutrophils # (Auto) 6.5, Lymphocytes # (Auto) 1.1, Monocytes # (Auto) 0.5, Eosinophils # (Auto) 0.0, Basophils # (Auto) 0.0, Immature Granulocyte # (Auto) 0.0, Sodium Level 140, Potassium Level 4.1, Chloride Level 105, Carbon Dioxide Level 22, Anion Gap 13, Blood Urea Nitrogen 22H, Creatinine 0.78, Estimat Glomerular Filtration Rate > 60, BUN/Creatinine Ratio 28, Glucose Level 233H, Calcium Level 9.2 03/25/21 04:06: Glucometer 241H 03/25/21 05:09: Glucometer 219H 03/25/21 06:03: Glucometer 158H 03/25/21 11:08: Glucometer 177H Microbiology 03/25/21 Urine Culture - Preliminary, Resulted Gram Negative Nomi Home Meds Active Reported Ibuprofen 200 Mg Capsule 400 Mg PO Q8H PRN Amlodipine Besylate 5 Mg Tablet 5 Mg PO DAILY LAST FILLED 07-04-2020 #90/90 DAY SUPPLY Atorvastatin Calcium 40 Mg Tablet 40 Mg PO HS Glipizide 10 Mg Tablet 10 Mg PO DAILY LAST FILLED 10-02-2020 #90 DAY SUPPLY Lisinopril 10 Mg Tablet 10 Mg PO DAILY Novolog Flexpen (Insulin Aspart) 300 Units/3 Ml Solution 12 Units SC AC Tresiba Flextouch U-100 (Insulin Degludec) 100 Unit/1 Ml Insuln.pen 40 Units SC HS Assessment/Pt Instructions [facility] Wednesday Discharge Planning: <30 minutes discharge planning Discharge Instructions Discharge Diet: No Restrictions Discharge Physical Examination Vital Signs Vital Signs Date Time Temp Pulse Resp B/P (MAP) Pulse Ox O2 Delivery O2 Flow Rate FiO2 03/25/21 08:35 106 171/80 (110) 03/25/21 08:00 99 Room Air 03/25/21 07:50 37.8 20 General Appearance: No Apparent Distress, WD/WN, Chronically ill Allergies: Coded Allergies: cortisone (Unverified Allergy, Mild, NAUSEA, 02/08/10) amoxicillin (Unverified Adverse Reaction, Severe, HIVES, 02/08/10) Discharge Summary Date of Admission Mar 25, 2021 at 00:45 Date of Discharge Discharge Date: Mar 25, 2021 DONAVAN HOWELL DO Mar 25, 2021 11:17
[2021-03-26] MEDS ORDERED: glipiZIDE 5 MG (GLUCOTROL) TAB PO SCH (06:30)
[2021-03-26] MEDS ORDERED: amLODIPine 5 MG (NORVASC) TAB PO SCH (09:00)
[2021-03-26] MEDS ORDERED: lisINopril 10 MG (PRINIVIL) TABLET PO SCH (09:00)
== END 2021-03-25 11:50 | disposition home or self-care (01) ==
LOC: EDUNIT# 22:31 → ER 22:32 → CSD 22:33 → UNDOADMOB 03-25 00:45 → UNDODISOB 03-25 11:51
PROVIDERS: ADMIT Internal Medicine; ATTEND Internal Medicine
DX: E11.649 Type 2 diabetes mellitus with hypoglycemia without coma (principal); I10 Essential (primary) hypertension; E78.00 Pure hypercholesterolemia, unspecified; E03.9 Hypothyroidism, unspecified; F41.9 Anxiety disorder, unspecified; F32.9 Major depressive disorder, single episode, unspecified; G93.89 Other specified disorders of brain; Z79.899 Other long term (current) drug therapy; Z79.4 Long term (current) use of insulin; W19.XXXA Unspecified fall, initial encounter
CPT/HCPCS: 70450; 70553; 71045; 72125; 80048; 80053; 81000; 82947 ×2; 85025 ×2; 87077; 87088; 87186; 99284; G0378; 36415

== ENCOUNTER 2021-06-04 23:24 | Emergency (ER) | payer MEDICARE, OTHER ==
[~2021-06-04] VITALS: Ht 160 cm; Wt 75.0 kg
[~2021-06-04 23:24] MED LIST changes: +AMLO-250 PO; +CEFD300C3 PO; +GLIP10TA13 PO; +IBUP-2185 PO; +INSU100I14 SC; +INSU100I32 SC; +LISI10TA25 PO
[2021-06-05] MEDS ORDERED: RT-ALBUTEROL HFA 8.5 GM INHALER IH STA (00:51)
--- NOTE | 2021-06-05 01:00 | ED General ---
General Chief Complaint: Psych/Social Disorder Stated Complaint: SOB,HEART PALPITATIONS,CONGESTION Nursing Triage Note: Pt ambulatory into ER with complaining that she "can feel her heart beat when she takes deep breath". Pt states that she is out of her anxiety medication, and was a little anxious tonight. Pt denies SOA, chest pain, or other complaints. Source of Information: Patient Exam Limitations: No Limitations History of Present Illness Date Seen by Provider: Jun 05, 2021 Time Seen by Provider: 00:40 Initial Comments Patient is a 76-year-old female who presents to the emergency room with a chief complaint of what sounds like palpitations and some shortness of breath and cough. Patient states that she was working in her house dusting in one of her back rooms today and also outside in the yard. She states that frequently will make her little short of breath. Patient states she started coughing this evening and felt like she could hear her breathing. Patient states that she has not had any fevers or chills no Covid exposures that she is aware of. She is vaccinated. She denies upper respiratory congestion. No nausea, vomiting diarrhea. No chest pain. No abdominal pain. No genitourinary complaints. No diarrhea. No swelling in her legs. She states she feels a little bit better and not quite so short of breath now and is no longer coughing. She does not have a history of COPD. She does not wear oxygen at night. Room air sat urations are 97 to 98%. Patient is quite hypertensive at 218/105. She states she takes her blood pressure medicines "when I think about it". She also did not check her blood sugar today. She states she is ran out of her anxiety medications but has an a ppointment this , today with her primary care physician. All other review of systems reviewed and negative except as stated above. Timing/Duration: 1-3 Hours Severity: Moderate Associated Systoms: Cough, Shortness of Air Allergies and Home Medications Allergies Coded Allergies: cortisone (Unverified Allergy, Mild, NAUSEA, 02/08/10) amoxicillin (Unverified Adverse Reaction, Severe, HIVES, 02/08/10) Home Medications Amlodipine Besylate 5 Mg Tablet, 5 MG PO DAILY, (Reported) LAST FILLED 07-04-2020 #90/90 DAY SUPPLY Atorvastatin Calcium 40 Mg Tablet, 40 MG PO HS, (Reported) Cefdinir 300 Mg Capsule, 300 MG PO BID Prescribed by: DONAVAN HOWELL on 03/25/21 1117 Glipizide 10 Mg Tablet, 10 MG PO DAILY, (Reported) LAST FILLED 10-02-2020 #90/90 DAY SUPPLY Ibuprofen 200 Mg Capsule, 400 MG PO Q8H PRN for PAIN-MILD (1-4), (Reported) Insulin Aspart 300 Units/3 Ml Solution, 6 UNITS SC AC Prescribed by: DONAVAN HOWELL on 03/25/21 111 Insulin Degludec 100 Unit/1 Ml Insuln.pen, 20 UNITS SC HS Prescribed by: DONAVAN HOWELL on 03/25/21 1117 Lisinopril 10 Mg Tablet, 10 MG PO DAILY, (Reported) Patient Home Medication List Home Medication List Reviewed: Yes Review of Systems Review of Systems Constitutional: see HPI EENTM: no symptoms reported Respiratory: cough, short of breath Cardiovascular: no symptoms reported Gastrointestinal: no symptoms reported Genitourinary: no symptoms reported Musculoskeletal: see HPI Skin: no symptoms reported Psychiatric/Neurological: Anxiety All Other Systems Reviewed Negative Unless Noted: Yes Past Cxncxxr-Qzoqti-Snbdpb Hx Patient Social History Tobacco Use?: No Use of E-Cig and/or Vaping dev: No Substance use?: No Alcohol Use?: No Pt feels they are or have been: No Immunizations Up To Date Tetanus Booster (TDap): Unknown Influenza Vaccine Up-to-Date: No; Not 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 Doesnt have card with her. Seasonal Allergies Seasonal Allergies: No Past Medical History Surgeries: Yes (HEART CATH, FOOT SURGERY) Appendectomy, Hysterectomy, Orthopedic Respiratory: Yes Chronic Bronchitis Cardiac: Yes (HIGH CHOLESTEROL) High Cholesterol, Hypertension Neurological: No Reproductive Disorders: No Sexually Transmitted Disease: No Genitourinary: Yes Gastrointestinal: No Musculoskeletal: Yes (ARTHRITIS) Endocrine: Yes Hypothyroidsim, Diabetes, Non-Insulin dep Cancer: No Psychosocial: Yes Anxiety, Depression Integumentary: No Blood Disorders: No Adverse Reaction/Blood Tranf: No Family Medical History No Pertinent Family Hx Physical Exam Vital Signs Vital Signs - First Documented 06/05/21 00:11 Temp 36.8 Pulse 103 Resp 18 B/P (MAP) 195/95 (128) Pulse Ox 97 O2 Delivery Room Air Capillary Refill : Less Than 3 Seconds Height, Weight, BMI Height: 5'3.00" Weight: 140lbs. oz. 63.946968qx; 29.00 BMI Method:Stated General Appearance: No Apparent Distress, WD/WN HEENT: PERRL/EOMI Neck: Normal Inspection Respiratory: No Accessory Muscle Use, No Respiratory Distress, Wheezing (Bilateral upper anterior and posterior expiratory wheeze noted. No increased work of breathing or respiratory distress is noted.) Cardiovascular: Regular Rate, Rhythm (Heart rate in the mid 90s), Normal Peripheral Pulses Gastrointestinal: Non Tender, Soft Extremity: Normal Inspection, Normal Range of Motion, Non Tender, No Calf Tenderness Neurologic/Psychiatric: Alert, Oriented x3, No Motor/Sensory Deficits, Normal Mood/Affect Skin: Normal Color, Warm/Dry Progress/Results/Core Measures Suspected Sepsis SIRS Temperature: Pulse: 103 Respiratory Rate: 18 Blood Pressure 195 /95 Mean: 128 Results/Orders Lab Results Laboratory Tests Test 06/05/21 00:53 Range/Units Glucometer 203 H 70-110 MG/DL My Orders Orders - SELMA PICKETT MD Accucheck Stat ONCE (06/05/21 00:39) Chest 1 View, Ap/Pa Only (06/05/21 00:51) Albuterol Inhaler (Albuterol) (06/05/21 00:51) Lisinopril Tablet (Zestril Tablet) (06/05/21 01:30) Vital Signs/I&O 06/05/21 00:11 Temp 36.8 Pulse 103 Resp 18 B/P (MAP) 195/95 (128) Pulse Ox 97 O2 Delivery Room Air Capillary Refill : Less Than 3 Seconds Blood Pressure Mean: 128 Progress Note : Time: 01:19 Progress Note Patient seen and examined, 76-year-old with a chief complaint of cough, wheezing and a little shortness of breath. Patient is quite hypertensive and has not taken her medications today. She denies any chest pain persistent shortness of breath, nausea vomiting or GI or complaints. She is treated with 2 puffs of an albuterol inhaler for the little bit of wheezing auscultated on exam. Chest x-ray is reviewed and normal. Patient is given 10 mg of lisinopril for her blood pressure. She is strongly encouraged to continue taking her blood pressure on a daily basis as directed by her primary care physician. She is out of her anxiety medication and will be seeing her primary care physician later today. Patient anticipates getting refills on her meds. She has no clinical or objective findings to warrant further studies from the emergency department. She is quite anxious and that is probably compounding her blood pressure. Patient has no concern at this time for any secondary conditions due to her blood pressure. She is not in congestive heart failure, she does not have any renal complaints. She is not persistently short of breath or hypoxic, no concerns for pulmonary edema. No neurologic complaints. I think she is safe to go home to resume her daily medications. Patient verbalizes understanding, all questions are sought and answered. Patient is stable for discharge. Diagnostic Imaging Diagonstic Imaging: Xray Plain Films/CT/US/NM/MRI: chest Comments Single view chest x-ray demonstrates clear lungs, normal mediastinal structures, no bony abnormalities are appreciated. X-rays interpreted by me Departure Impression Primary Impression: Cough Additional Impressions: Anxiety about health Hypertension Disposition: HOME, SELF-CARE Condition: Stable Departure-Patient Inst. Decision time for Depature: 00:55 Referrals: MARJ DELANEY MD (PCP/Family) Primary Care Physician Patient Instructions: Cough in Adults Add. Discharge Instructions: Drink plenty of fluids to stay well-hydrated. Please take your blood pressure medications as prescribed on a daily basis. Keep your follow-up appointment with your primary care physician. Return to the emergency room for any new, concerning or emergent complaints. SELMA PICKETT MD Jun 05, 2021 01:00
[2021-06-05 01:28] VITALS: BP 165/81
[2021-06-05] MEDS ORDERED: lisINopril 10 MG (PRINIVIL) TABLET PO ONE (01:30)
--- NOTE | 2021-06-05 07:32 | Diagnostic Imaging Report ---
INDICATION: Shortness of breath and cough. Comparison is made with prior examination from 03/24/2021. FINDINGS: The heart size, mediastinal configuration, and pulmonary vascularity are within normal limits. There is no pleural effusion, pneumothorax, or pneumonia. The osseous structures are unremarkable. IMPRESSION: No acute cardiopulmonary abnormality. Dictated by: Dictated on workstation # [id number]
== END 2021-06-05 01:23 | disposition home or self-care (01) ==
LOC: EDUNIT# 23:24 → ER 23:28
DX: R05 Cough (principal); I10 Essential (primary) hypertension; E78.00 Pure hypercholesterolemia, unspecified; E11.9 Type 2 diabetes mellitus without complications; Z79.899 Other long term (current) drug therapy
CPT/HCPCS: 71045; 82947

== ENCOUNTER 2023-05-02 18:53 | Inpatient (IN) | payer MEDICARE, OTHER ==
[~2023-05-02] VITALS: Ht 160 cm; Wt 70.6 kg
[2023-05-02 19:12] LABS: BASOPHILS # (AUTO) 0.1 10^3/uL (0.0-0.1); BASOPHILS % (AUTO) 1 % (0-10); EOSINOPHILS # (AUTO) 0.1 10^3/uL (0.0-0.3); EOSINOPHILS % (AUTO) 1 % (0-10); HEMATOCRIT 41 % (35-52); HEMOGLOBIN 13.8 g/dL (11.5-16.0); LYMPHOCYTES # (AUTO) 1.2 10^3/uL (1.0-4.0); LYMPHOCYTES % (AUTO) 20 % (12-44); MEAN CORPUSCULAR HEMOGLOBIN 30 pg (25-34); MEAN CORPUSCULAR HGB CONC 33 g/dL (32-36); MEAN CORPUSCULAR VOLUME 90 fL (80-99); MEAN PLATELET VOLUME 9.5 fL (9.0-12.2); MONOCYTES # (AUTO) 0.4 10^3/uL (0.0-1.0); MONOCYTES % (AUTO) 7 % (0-12); NEUTROPHILS # (AUTO) 4.1 10^3/uL (1.8-7.8); NEUTROPHILS % (AUTO) 70 % (42-75); PLATELET COUNT 187 10^3/uL (130-400); WHITE BLOOD COUNT 5.8 10^3/uL (4.3-11.0)
[2023-05-02] MEDS ORDERED: D5 NS 1000 ML IV SOLUTION 1,000 ML IV ONE (19:15)
[2023-05-02] MEDS ORDERED: hydrALAZINE (APESOLINE) 20 MG/ML VIAL IV ONE ×2 (19:15→20:00)
[2023-05-02 19:28] LABS: ALBUMIN 3.7 GM/DL (3.2-4.5); POTASSIUM 3.6 MMOL/L (3.6-5.0)
[2023-05-02 19:30] LABS: CALCIUM 9.2 MG/DL (8.5-10.1)
[2023-05-02 19:31] LABS: TOTAL PROTEIN 6.6 GM/DL (6.4-8.2)
[2023-05-02 19:32] LABS: BILIRUBIN,TOTAL 0.3 MG/DL (0.1-1.0)
[2023-05-02 19:34] LABS: CREATININE SERUM 0.86 MG/DL (0.60-1.30)
--- NOTE | 2023-05-02 19:35 | ED General ---
General Chief Complaint: Glucose Problems Stated Complaint: LOW BLOOD SUGAR Nursing Triage Note: BROUGHT IN BY [facility] FOR LOW BLOOD GLUCOSE. EMS REPORTS INITIAL GLUCOSE OF 23. 250ML D10 ADMINISTERED BY EMS. Source of Information: Patient (PT IS VERY POOR HISTORIAN ), EMS, Old Records History of Present Illness Date Seen by Provider: May 02, 2023 Time Seen by Provider: 18:53 Initial Comments PT ARRIVES VIA EMS FROM HOME EMS REPORT THAT PT'S SON CALLED BECAUSE PT "WASN'T ACTING RIGHT" PT IS DIABETIC, SON DID NOT CHECK BLOOD SUGAR, BUT GAVE HER SOMETHING TO DRINK AND A TOOTSIE ROLL ABOUT 45 MINUTES AGO BLOOD GLUCOSE WAS 23 WHEN EMS ARRIVED AT SCENE, AND PT WAS LETHARGIC, AGITATED, VERY CONFUSED, YELLING AT SON EMS GAVE 125 ML OF D10 AND REPEAT BLOOD GLUCOSE WAS 213 BLOOD PRESSURE WAS 207 SYSTOLIC FOR EMS. ON ARRIVAL, PT IS STILL SOMEWHAT CONFUSED--HAS NO RECOLLECTION OF ANY OF TODAY'S EVENTS, BUT AWAKE/ALERT AND SHIVERING. PT DOES STATE THAT "I THINK MY DIABETES HIT ME" BUT IS UNABLE TO ELABORATE ANY FURTHER, SHE STATES SHE DOES NOT KNOW WHAT HAPPENED. SHE C/O BEING COLD, BUT NO OTHER PHYSICAL COMPLAINTS. PCP: Allergies and Home Medications Allergies Coded Allergies: cortisone (Unverified Allergy, Mild, NAUSEA, 02/08/10) amoxicillin (Unverified Adverse Reaction, Severe, HIVES, 02/08/10) Patient Home Medication List Amlodipine Besylate (Amlodipine Besylate) 5 Mg Tablet, 5 MG PO DAILY, (Reported) Entered as Reported by: MY SEGOVIA on 03/25/21 1007 Atorvastatin Calcium (Atorvastatin Calcium) 40 Mg Tablet, 40 MG PO HS, (Reported) Entered as Reported by: MY SEGOVIA on 03/25/21 1007 Cefdinir (Cefdinir) 300 Mg Capsule, 300 MG PO BID Prescribed by: DONAVAN HOWELL on 03/25/21 1117 Glipizide (Glipizide) 10 Mg Tablet, 10 MG PO DAILY, (Reported) Entered as Reported by: VISHAL LARA on 03/25/21 0257 Ibuprofen (Ibuprofen) 200 Mg Capsule, 400 MG PO Q8H PRN for PAIN-MILD (1-4), (Reported) Entered as Reported by: MY SEGOVIA on 03/25/21 1007 Insulin Aspart (Novolog Flexpen) 300 Units/3 Ml Solution, 6 UNITS SC AC Prescribed by: DONAVAN HOWELL on 03/25/21 1117 Insulin Degludec (Tresiba Flextouch U-100) 100 Unit/1 Ml Insuln.pen, 20 UNITS SC HS Prescribed by: DONAVAN HOWELL on 03/25/21 1117 Lisinopril (Lisinopril) 10 Mg Tablet, 10 MG PO DAILY, (Reported) Entered as Reported by: JANINE CANELA on 03/24/212238 Past Wbcfdho-Hxixwd-Azcevu Hx Patient Social History Tobacco Use?: No Substance use?: No Alcohol Use?: No Pt feels they are or have been: No Immunizations Up To Date Tetanus Booster (TDap): Unknown First/Initial COVID19 Vaccinat: X2 Seasonal Allergies Seasonal Allergies: No Past Medical History Surgery/Hospitalization HX: HEART CATH, APPENDECTOMY, HYSTERECTOMY, FOOT SX HTN, HLD, ANXIETY, DEPRESSION, HYPOTHRYOIDISM, DIABETES Surgeries: Yes (HEART CATH, FOOT SURGERY) Appendectomy, Hysterectomy, Orthopedic Respiratory: Yes Chronic Bronchitis Cardiac: Yes (HIGH CHOLESTEROL) High Cholesterol, Hypertension Neurological: No Reproductive Disorders: No Sexually Transmitted Disease: No Genitourinary: Yes Gastrointestinal: No Musculoskeletal: Yes (ARTHRITIS) Endocrine: Yes Hypothyroidsim, Diabetes, Non-Insulin dep Cancer: No Psychosocial: Yes Anxiety, Depression Integumentary: No Blood Disorders: No Adverse Reaction/Blood Tranf: No Family Medical History No Pertinent Family Hx Physical Exam Vital Signs Vital Signs - First Documented 05/02/23 18:53 Temp 33.8 Pulse 65 Resp 16 B/P (MAP) 198/106 (136) Pulse Ox 100 O2 Delivery Room Air Capillary Refill : Less Than 3 Seconds Height, Weight, BMI Height: 5'3.00" Weight: 140lbs. oz. 63.779105dn; 29.00 BMI Method:Stated Progress/Results/Core Measures Suspected Sepsis SIRS Temperature: Pulse: 65 Respiratory Rate: 16 Laboratory Tests 05/02/23 18:55: White Blood Count 5.8 Blood Pressure 198 /106 Mean: 136 Laboratory Tests 05/02/23 18:55: Platelet Count 187 Results/Orders Lab Results Laboratory Tests Test 05/02/23 18:55 Range/Units White Blood Count 5.8 4.3-11.0 10^3/uL Red Blood Count 4.62 3.80-5.11 10^6/uL Hemoglobin 13.8 11.5-16.0 g/dL Hematocrit 41 35-52 % Mean Corpuscular Volume 90 80-99 fL Mean Corpuscular Hemoglobin 30 25-34 pg Mean Corpuscular Hemoglobin Concent 33 32-36 g/dL Red Cell Distribution Width 13.2 10.0-14.5 % Platelet Count 187 130-400 10^3/uL Mean Platelet Volume 9.5 9.0-12.2 fL Immature Granulocyte % (Auto) 1 % Neutrophils (%) (Auto) 70 42-75 % Lymphocytes (%) (Auto) 20 12-44 % Monocytes (%) (Auto) 7 0-12 % Eosinophils (%) (Auto) 1 0-10 % Basophils (%) (Auto) 1 0-10 % Neutrophils # (Auto) 4.1 1.8-7.8 10^3/uL Lymphocytes # (Auto) 1.2 1.0-4.0 10^3/uL Monocytes # (Auto) 0.4 0.0-1.0 10^3/uL Eosinophils # (Auto) 0.1 0.0-0.3 10^3/uL Basophils # (Auto) 0.1 0.0-0.1 10^3/uL Immature Granulocyte # (Auto) 0.0 0.0-0.1 10^3/uL Sodium Level 141 135-145 MMOL/L Potassium Level 3.6 3.6-5.0 MMOL/L Chloride Level 106 98-107 MMOL/L Calcium Level 9.2 8.5-10.1 MG/DL Corrected Calcium 9.4 8.5-10.1 MG/DL Albumin 3.7 3.2-4.5 GM/DL Amylase Level 65 25-125 U/L My Orders Orders - LONNIE CASTRO DO Accucheck Stat ONCE (05/02/23 19:02) Ed Iv/Invasive Line Start (05/02/23 19:02) Monitor-Rhythm Ecg Trace Only (05/02/23 19:02) Straight Cath For Spec.-Adult (05/02/23 19:02) Amylase (05/02/23 19:02) Cbc With Automated Diff (05/02/23 19:02) Comprehensive Metabolic Panel (05/02/23 19:02) Lipase (05/02/23 19:02) Magnesium (05/02/23 19:02) Ua Culture If Indicated (05/02/23 19:02) Ed Iv/Invasive Line Start (05/02/23 19:02) D5 Ns 1000 Ml Iv Solution (Dextrose 5%/0 (05/02/23 19:15) Hydralazine Injection (Apresoline Inject (05/02/23 19:15) Medications Given in ED Current Medications Medications Dose Ordered Sig/Zari Route Start Time Stop Time Status Last Admin Dose Admin Dextrose/Sodium Chloride 1,000 ml @ 0 mls/hr Q0M ONCE IV 05/02/23 19:15 05/02/23 19:16 DC 05/02/23 19:08 0 MLS/HR Hydralazine HCl 10 mg ONCE ONCE IV 05/02/23 19:15 05/02/23 19:16 DC 05/02/23 19:18 10 MG Vital Signs/I&O 05/02/23 18:53 Temp 33.8 Pulse 65 Resp 16 B/P (MAP) 198/106 (136) Pulse Ox 100 O2 Delivery Room Air Capillary Refill : Less Than 3 Seconds Blood Pressure Mean: 136 Point of Care Testing Finger Stick Blood Glucose: 163 LONNIE CASTRO DO May 02, 2023 19:35
[2023-05-02] MEDS ORDERED: LORazepam 0.5 MG (ATIVAN) TABLET PO STA ×2 (19:56→21:15)
[2023-05-02 20:20] LABS: BILIRUBIN,URINE NEGATIVE (NEGATIVE); CLARITY,URINE CLEAR; COLOR,URINE YELLOW; GLUCOSE, URINE (UA) 2+ (NEGATIVE); KETONES,URINE NEGATIVE (NEGATIVE); LEUKOCYTE ESTERASE ,URINE 3+ (NEGATIVE); NITRITE,URINE POSITIVE (NEGATIVE); PROTEIN,URINE NEGATIVE (NEGATIVE)
[2023-05-02 20:42] LABS: BACTERIA,URINE LARGE /HPF; RBC,URINE 0-2 /HPF; SQUAMOUS EPITHELIAL CELL,UR 0-2 /HPF
[2023-05-02] MEDS ORDERED: cefTRIAXone IV/IM 1,000 MG in NS (IVPB) 50 ML IV ONE (21:00)
[2023-05-02 21:35] VITALS: BP 205/80
[2023-05-02 21:38] VITALS: BP 176/69
[2023-05-02 21:43] VITALS: BP 167/90
[2023-05-02] MEDS ORDERED: LORazepam INJ 2 MG/ML (ATIVAN) VIAL IVP PRN (21:45)
[2023-05-02] MEDS ORDERED: ACETAMINOPHEN 325 MG TABLET PO PRN (21:45)
[2023-05-02] MEDS ORDERED: MILK OF MAGNESIA 400 MG/5 ML 30 ML UDC PO PRN (21:45)
[2023-05-02] MEDS ORDERED: CALCIUM CARBONATE 500 MG (TUMS) TAB.CHEW PO PRN (21:45)
[2023-05-02] MEDS ORDERED: ONDANSETRON 4 MG/2 ML (SDV) Z0FRAN IV PRN (21:45)
[2023-05-02] MEDS ORDERED: amLODIPine 5 MG (NORVASC) TAB PO ONE (21:45)
[2023-05-02] MEDS ORDERED: ANTACID SUSP 30 ML UDC (MYLANTA) PO PRN (21:45)
[2023-05-02] MEDS ORDERED: BISACODYL 10 MG SUPP (DULCOLAX) PR PRN (21:45)
[2023-05-02] MEDS ORDERED: hydrALAZINE (APESOLINE) 20 MG/ML VIAL IV PRN (21:45)
[2023-05-02] MEDS ORDERED: diphenhydrAMINE 25 MG TAB (BENADRYL) PO PRN (21:45)
[2023-05-02] MEDS ORDERED: polyethylene glycoL POWDER 17 GM (MIRALAX) PACK PO PRN (21:45)
[2023-05-02] MEDS ORDERED: cloNIDine 0.1 MG (CATAPRES) TAB PO PRN (21:45)
[2023-05-02] MEDS ORDERED: ONDANSETRON 4 MG (ZOFRAN) ORAL DISSOLVE TAB PO PRN (21:45)
[2023-05-02] MEDS ORDERED: LACTULOSE SYRUP 10GM/15ML (ENULOSE) 30ML UDC PO PRN (21:45)
[2023-05-02] MEDS ORDERED: MELATONIN 3 MG TABLET PO PRN (21:45)
[2023-05-02] MEDS ORDERED: DEXTROSE 50% 50 ML (IMS) SYR IV PRN (21:45)
[2023-05-02] MEDS ORDERED: diphenhydrAMINE 50 MG/ML INJ (BENADRYL) IVP PRN (21:45)
[2023-05-02] MEDS ORDERED: morphine INJ 4 MG/ML 1 ML (VIAL/SYRINGE) IV PRN (21:45)
[2023-05-02] MEDS ORDERED: LORazepam 0.5 MG (ATIVAN) TABLET PO PRN (21:45)
[2023-05-02] MEDS ORDERED: ENOXAPARIN 40 MG/0.4 ML (LOVENOX) SYR SC SCH (21:45)
[2023-05-02 21:51] VITALS: BP 198/106
[2023-05-02] MEDS ORDERED: RT-ALBUTEROL/IPRATROPIUM 3 ML (DUONEB) VIAL INH PRN (22:00)
[2023-05-02 22:02] VITALS: BP 174/87
--- NOTE | 2023-05-02 22:24 | Tele-ICU Progress Note ---
Progress Note 78 y/o admitted with AMS and hypoglycemia , with h/o DM2 and on Insulin. Found to have URI. Blood cultures and Urine c/s ordered. Started on ceftriaxone. Lactic acid levels ordered. Hypoglycemia resolved. Continue maintenance IVF. Case d/w the bedside nurse. Focused Exam Height, Weight, BMI Height: 5'3.00" Weight: 140lbs. oz. 63.666362nh; 29.00 BMI Method:Stated KENYON KATZ MD May 02, 2023 22:24
[2023-05-02] MEDS ORDERED: ENOXAPARIN 40 MG/0.4 ML (LOVENOX) SYR ONE (22:27)
[2023-05-02] MEDS ORDERED: amLODIPine 5 MG (NORVASC) TAB ONE (22:27)
[2023-05-02] MEDS: D5 NS 1000 ML IV SOLUTION 1,000 ML IV SCH (22:36)
[2023-05-02 23:09] VITALS: BP 174/100
[2023-05-03] VITALS (9 sets, daily range): BP systolic 119–179; BP diastolic 59–91
[2023-05-03 04:42] LABS: BASOPHILS # (AUTO) 0.1 10^3/uL (0.0-0.1); BASOPHILS % (AUTO) 1 % (0-10); EOSINOPHILS # (AUTO) 0.1 10^3/uL (0.0-0.3); EOSINOPHILS % (AUTO) 2 % (0-10); HEMATOCRIT 37 % (35-52); HEMOGLOBIN 12.5 g/dL (11.5-16.0); LYMPHOCYTES # (AUTO) 1.6 10^3/uL (1.0-4.0); LYMPHOCYTES % (AUTO) 30 % (12-44); MEAN CORPUSCULAR HEMOGLOBIN 30 pg (25-34); MEAN CORPUSCULAR HGB CONC 33 g/dL (32-36); MEAN CORPUSCULAR VOLUME 89 fL (80-99); MEAN PLATELET VOLUME 9.9 fL (9.0-12.2); MONOCYTES # (AUTO) 0.5 10^3/uL (0.0-1.0); MONOCYTES % (AUTO) 9 % (0-12); NEUTROPHILS % (AUTO) 57 % (42-75); PLATELET COUNT 209 10^3/uL (130-400); WHITE BLOOD COUNT 5.2 10^3/uL (4.3-11.0)
[2023-05-03 05:12] LABS: ALBUMIN 3.3 GM/DL (3.2-4.5); BILIRUBIN,TOTAL 0.4 MG/DL (0.1-1.0); CALCIUM 8.4 MG/DL (8.5-10.1); CREATININE SERUM 0.75 MG/DL (0.60-1.30); POTASSIUM 3.6 MMOL/L (3.6-5.0); TOTAL PROTEIN 5.5 GM/DL (6.4-8.2)
[2023-05-03] MEDS: D5 NS 1000 ML IV SOLUTION 1,000 ML IV SCH ×2 (08:21→20:21)
[2023-05-03] MEDS: SENNOSIDES 8.6 MG (SENOKOT) TAB PO SCH ×2 (09:08→20:21)
[2023-05-03] MEDS: DOCUSATE SODIUM 100 MG (COLACE) CAP PO SCH ×2 (09:08→20:21)
[2023-05-03] MEDS: amLODIPine 5 MG (NORVASC) TAB PO SCH (09:08)
--- NOTE | 2023-05-03 10:14 | History & Physical ---
NICKIE DELVALLE 05/03/23 1014: History of Present Illness History of Present Illness Reason for visit/HPI Gloria Alford is a 78yo F with past medical hx of HTN, HLD, and T2DM requiring insulin. She presented to the ED on 05/02 after her son reported her to be lethargic, agitated, and confused. EMS measured her blood sugar at 23. She was also hypertensive. In the ED she was given D5NS and hydralazine. She was also found to have evidence of a UTI. She was admitted to the ICU for management of her hypoglycemia and hypertensive urgency. She was seen at bedside this morning. She is alert and oriented x4 with appropriate answers to questions. She reports that she is in between PCPs due to a recent correction and has not taken her insulin for approximately 1 week. She has taken her glipizide. She denies any recent hx of hypoglycemic events. Her nutritional intake has been somewhat decreased since the of her son in the spring. She denies any fever, chills, hematuria, dysuria, or increased frequency. She denies chest pain and shortness of breath. Date of Admission May 02, 2023 at 21:15 Date Seen by a Provider: May 03, 2023 Time Seen by a Provider: 07:45 I consulted on this patient on 05/03/23 10:09 Attending Physician [facility] Admitting Physician Admitting Physician: Emily Howell DO Attending Physician: Emily Howell DO Consult Allergies and Home Medications Allergies Coded Allergies: cortisone (Unverified Allergy, Mild, NAUSEA, 02/08/10) amoxicillin (Unverified Adverse Reaction, Severe, HIVES, 02/08/10) Patient Home Medication List Home Medication List Reviewed: Yes Insulin Aspart (Novolog Flexpen) 100 Unit/Ml (3 Ml) Solution, UNITS SQ AC PRN for HYPERGLYCEMIA, (Reported) Entered as Reported by: MY SEGOVIA on 05/03/23 1520 Last Action: Reviewed Insulin Degludec (Tresiba Flextouch U-100) 100 Unit/Ml (3 Ml) Insuln.pen, UNIT SQ HS PRN for HYPERGLYCEMIA, (Reported) Entered as Reported by: MY SEGOVIA on 05/03/23 1520 Last Action: Reviewed Discontinued Medications Amlodipine Besylate (Amlodipine Besylate) 5 Mg Tablet, 5 MG PO DAILY, (Reported) Discontinued Reason: No Longer Taking Entered as Reported by: MY SEGOVIA on 03/25/21 1007 Last Action: Discontinued Atorvastatin Calcium (Atorvastatin Calcium) 40 Mg Tablet, 40 MG PO HS, (Reported) Discontinued Reason: No Longer Taking Entered as Reported by: MY SEGOVIA on 03/25/211006 Last Action: Discontinued Cefdinir (Cefdinir) 300 Mg Capsule, 300 MG PO BID Discontinued Reason: No Longer Taking Prescribed by: EMILY HOWELL on 03/25/211116 Last Action: Discontinued Glipizide (Glipizide) 10 Mg Tablet, 10 MG PO DAILY, (Reported) Discontinued Reason: No Longer Taking Entered as Reported by: VISHAL LARA on 03/25/21256 Last Action: Discontinued Ibuprofen (Ibuprofen) 200 Mg Capsule, 400 MG PO Q8H PRN for PAIN-MILD (1-4), (Reported) Discontinued Reason: No Longer Taking Entered as Reported by: MY SEGOVIA on 03/25/211006 Last Action: Discontinued Insulin Aspart (Novolog Flexpen) 300 Units/3 Ml Solution, 6 UNITS SC AC Discontinued Reason: No Longer Taking Prescribed by: EMILY HOWELL on 03/25/211116 Last Action: Discontinued Insulin Degludec (Tresiba Flextouch U-100) 100 Unit/1 Ml Insuln.pen, 20 UNITS SC HS Discontinued Reason: No Longer Taking Prescribed by: EMILY HOWELL on 03/25/211116 Last Action: Discontinued Lisinopril (Lisinopril) 10 Mg Tablet, 10 MG PO DAILY, (Reported) Discontinued Reason: No Longer Taking Entered as Reported by: JANINE CANELA on 03/24/212238 Last Action: Discontinued Past Elhzxsg-Rwhrkl-Gjtuhz Hx Patient Social History Tobacco Use?: No Substance use?: No Alcohol Use?: No Pt feels they are or have been: No Immunizations Up To Date Date of Influenza Vaccine: Apr 08, 2020 First/Initial COVID19 Vaccinat: X2 Tetanus Booster (TDap): Less Than 5 Years Date of Pneumonia Vaccine: Jul 27, 2011 Seasonal Allergies Seasonal Allergies: No Current Status Advance Directives: No Communicates: Verbally Primary Language: Moldovan Preferred Spoken Language: Moldovan Is interpretation needed?: No Past Medical History Surgeries: Appendectomy, Hysterectomy, Orthopedic High Cholesterol, Hypertension Sexually Transmitted Disease: No Diabetes, Non-Insulin dep (does take insulin) Anxiety, Depression Blood Disorders: No Adverse Reaction/Blood Tranf: No Family Medical History No Pertinent Family Hx Review of Systems Constitutional: No chills, No diaphoresis, No fever EENTM: No hearing loss, No vision loss Respiratory: No cough, No short of breath Cardiovascular: No chest pain, No palpitations Gastrointestinal: No abdominal pain, No nausea, No vomiting Genitourinary: No dysuria, No hematuria Psychiatric/Neurological: Denies Headache, Denies Weakness Physical Exam Vital Signs Vital Signs - First Documented 05/02/23 05/02/23 18:53 21:51 Temp 33.8 Pulse 65 Resp 16 B/P (MAP) 198/106 (136) Pulse Ox 100 O2 Delivery Room Air FiO2 21 Capillary Refill : Less Than 3 Seconds Height, Weight, BMI Height: 5'3.00" Weight: 140lbs. oz. 63.966965cj; 27.53 BMI Method:Stated General Appearance: No Apparent Distress, WD/WN HEENT: PERRL/EOMI, Moist Mucous Membranes Neck: Supple Respiratory: Lungs Clear, Normal Breath Sounds, No Accessory Muscle Use, No Respiratory Distress Cardiovascular: Regular Rate, Rhythm, Normal Peripheral Pulses Gastrointestinal: Non Tender, Soft Rectal: Deferred Extremity: Non Tender, No Pedal Edema Neurologic/Psychiatric: Alert, Oriented x3, Normal Mood/Affect Skin: Normal Color, Warm/Dry Assessment/Plan Assessment and Plan Hypoglycemic event in the setting of Type 2 DM on insulin Altered mental status Mental status improved Continue D5NS at 60mls/hr with regular glucose checks, most recent level 166 Patient denies hx of hypoglycemic events Needs home diabetic medications refilled once discharged Move to 4th floor today UTI UA positive for LE, nitrites, WBCs, and bacteria urine culture grew gram negative nils blood cx pending Continue ceftriaxone 1000mg remains afebrile with normal WBC count Lactic acid normal HTN urgency 198/106 on admission no signs of end organ dysfunction mental status changes likely related to glucose level rather than hypertensive encephalopathy hydralazine given in ED Oral amlodipine 5mg continue to monitor pressure hydralazine as needed Mild hypothermia lowest temp 33.8, improved to 36.2 passive external warming with blankets DVT ppx- lovenox Diet- regular Code- full EMILY HOWELL DO 05/03/23 2005: Allergies and Home Medications Allergies Coded Allergies: cortisone (Unverified Allergy, Mild, NAUSEA, 02/08/10) amoxicillin (Unverified Adverse Reaction, Severe, HIVES, 02/08/10) Patient Home Medication List Insulin Aspart (Novolog Flexpen) 100 Unit/Ml (3 Ml) Solution, UNITS SQ AC PRN for HYPERGLYCEMIA, (Reported) Entered as Reported by: MY SEGOVIA on 05/03/23 152 Last Action: Reviewed Insulin Degludec (Tresiba Flextouch U-100) 100 Unit/Ml (3 Ml) Insuln.pen, UNIT SQ HS PRN for HYPERGLYCEMIA, (Reported) Entered as Reported by: MY SEGOVIA on 05/03/231519 Last Action: Reviewed Discontinued Medications Amlodipine Besylate (Amlodipine Besylate) 5 Mg Tablet, 5 MG PO DAILY, (Reported) Discontinued Reason: No Longer Taking Entered as Reported by: MY SEGOVIA on 03/25/21 1007 Last Action: Discontinued Atorvastatin Calcium (Atorvastatin Calcium) 40 Mg Tablet, 40 MG PO HS, (Reported) Discontinued Reason: No Longer Taking Entered as Reported by: MY SEGOVIA on 03/25/21 1007 Last Action: Discontinued Cefdinir (Cefdinir) 300 Mg Capsule, 300 MG PO BID Discontinued Reason: No Longer Taking Prescribed by: EMILY HOWELL on 03/25/211116 Last Action: Discontinued Glipizide (Glipizide) 10 Mg Tablet, 10 MG PO DAILY, (Reported) Discontinued Reason: No Longer Taking Entered as Reported by: VISHAL LARA on 03/25/21 0257 Last Action: Discontinued Ibuprofen (Ibuprofen) 200 Mg Capsule, 400 MG PO Q8H PRN for PAIN-MILD (1-4), (Reported) Discontinued Reason: No Longer Taking Entered as Reported by: MY SEGOVIA on 03/25/21 1007 Last Action: Discontinued Insulin Aspart (Novolog Flexpen) 300 Units/3 Ml Solution, 6 UNITS SC AC Discontinued Reason: No Longer Taking Prescribed by: EMILY HOWELL on 03/25/211116 Last Action: Discontinued Insulin Degludec (Tresiba Flextouch U-100) 100 Unit/1 Ml Insuln.pen, 20 UNITS SC HS Discontinued Reason: No Longer Taking Prescribed by: EMILY HOWELL on 03/25/21 1117 Last Action: Discontinued Lisinopril (Lisinopril) 10 Mg Tablet, 10 MG PO DAILY, (Reported) Discontinued Reason: No Longer Taking Entered as Reported by: JANINE CANELA on 03/24/212238 Last Action: Discontinued Assessment/Plan Admission Diagnosis Admission Status: Observation Supervisory-Addendum Brief Verification & Attestation Participated in pt care: history, MDM, physical Personally performed: exam, history, MDM, supervision of care Care discussed with: Medical Student Procedures: n/a Results interpretation: Verified all documentation Verification and Attestation of Medical Student E/M Service A medical student performed and documented this service in my presence. I reviewed and verified all information documented by the medical student and made modifications to such information, when appropriate. I personally performed the physical exam and medical decision making. Emily Howell, May 03, 2023,20:04 NICKIE DELVALLE May 03, 2023 10:14 EMILY HOWELL DO May 03, 2023 20:05
--- NOTE | 2023-05-03 13:12 | Physical Therapy Evaluation ---
PT Evaluation-General Medical Diagnosis Admission Date May 02, 2023 at 21:15 Medical Diagnosis: hypoglycemia Onset Date: May 02, 2023 Therapy Diagnosis Therapy Diagnosis: debility/weakness Height/Weight Height (Feet): 5 Height (Inches): 3.00 Weight (Pounds): 140 Precautions Precautions/Isolations: Fall Prevention, Standard Precautions Referral Physician: Annette Reason for Referral: Evaluation/Treatment Medical History Pertinent Medical History: DM, HTN, Hypothroidism Current History EMS secondary to low blood sugar Reviewed History: Yes Social History Home: Single Level Current Living Status: Alone (son is currently staying with her) Entry Into Home: Stairs With Railing PT Steps Into Home: 3 Prior Prior Level of Function SCALE: Activities may be completed with or without assistive devices. 1-Xmelrtzksu-pjcqwgg completes the activity by him/herself with no assistance from a helper. 5-Set-up or Clean-up Assistance-helper sets up or cleans up; patient completes activity. [place] assists only prior to or following the activity. 4-Supervision or Touching Assistance-helper provides verbal cues and/or touching/steadying and/or contact guard assistance as patient completes activity. Assistance may be provided throughout the activity or intermittently. 3-Partial/Moderate Assistance-helper does LESS THAN HALF the effort. [place] lifts, holds or supports trunk or limbs, but provides less than half the effort. 2-Substantial/Maximal Assistance-helper does MORE THAN HALF the effort. [place] lifts or holds trunk or limbs and provides more than half the effort. 3-Belqnwoel-qqaplm does ALL the effort. Patient does none of the effort to complete the activity. Or, the assistance of 2 or more helpers is required for the patient to complete the activity. If activity was not attempted, code reason: 7-Patient Refused. 9-Not Applicable-not attempted and the patient did not perform the activity be fore the current illness, exacerbation or injury. 10-Not Attempted due to Environmental Limitations-(lack of equipment, weather restraints, etc.). 88-Not Attempted due to Medical Conditions or Safety Concerns. Bed Mobility: 6 Transfers (B,C,W/C): 6 Gait: 6 Stairs: 6 Indoor Mobility (Ambulation): Independent Stairs: Independent Prior Devices Use: None PT Evaluation-Current Subjective Patient agrees to PT. Does c/o dizziness with transition supine to sit. Objective Patient Orientation: Normal For Age Attachments: IV ROM/Strength ROM Lower Extremities bilateral LE WFL Strength Lower Extremities 3+/5 grossly bilateral LE all planes Integumentary/Posture Bowel Incontinence: No Bladder Incontinence: No Posture WFL Neuromuscular (Tone, Coordination, Reflexes) grossly intact Sensory Vision: Functional Hearing: Functional Transfers Lying to Sitting/Side of Bed(Q: 6 Sit to Stand (QC): 4 Chair/Dxh-gc-Trycn Xfer(QC): 4 Gait Mode of Locomotion: Walk Anticipated Mode of Locomotion: Walk Walk 10 feet (QC): 4 Walk 50 ft with 2 Turns(QC): 4 Walk 150 ft (QC): 88 Distance: 50' Gait Assistive Device: None Comments/Gait Description CGA for safety Balance Sitting Static: Normal Sitting Dynamic: Normal Standing Static: Fair Standing Dynamic: Fair Assessment/Needs Noted elevated BP 189/82 and HR 134 after session and sitting up in recliner. Patient will benefit from short term skilled PT to address functional mobility to ensure safe return to home at maximum LOF. Rehab Potential: Fair PT Dominatrix Goals [facility]pc Goals PT Dominatrix Goals Time Frame: May 15, 2023 Roll Left & Right (QC): 6 Sit to Lying (QC): 6 Lying-Sitting on Side/Bed(QC): 6 Sit to Stand (QC): 6 Chair/Orb-io-Ltloj Xfer(QC): 6 Toilet Transfer (QC): 6 Walk 10 feet (QC): 6 Walk 50ft with 2 Turns (QC): 6 Walk 150 ft (QC): 6 PT Plan Problem List Problem List: Activity Tolerance, Functional Strength, Safety, Balance, Gait, Transfer Treatment/Plan Treatment Plan: Continue Plan of Care Treatment Plan: Education, Functional Activity Brian, Functional Strength, Gait, Safety, Therapeutic Exercise, Transfers Treatment Duration: May 15, 2023 Frequency: 5 times per week Estimated Hrs Per Day: .25 hour per day Patient and/or Family Agrees t: Yes Time Time In: 1250 Time Out: 1308 DATE: May 03, 2023 Total Billed Treatment Time: 18 Total Billed Treatment 1 visit EVModC 18 min MARIAMA DIAZ PT May 03, 2023 13:12
--- NOTE | 2023-05-03 13:31 | Occupational Therapy Eval ---
OT Evaluation-General/PLF Medical Diagnosis Admission Date May 02, 2023 at 21:15 Medical Diagnosis: hypoglycemia Onset Date: May 02, 2023 Therapy Diagnosis Therapy Diagnosis: weakness, dizziness Height/Weight Height (Feet): 5 Height (Inches): 3.00 Weight (Pounds): 140 Precautions Precautions/Isolations: Fall Prevention, Standard Precautions Weight Bear Status Weight Bearing Restriction: Full Weight Bearing Location Restriction: LE Bilateral Referral Physician: Annette Referral Reason: Activity Tolerance, Self Care, Evaluation/Treatment, Strengthening/ROM Medical History Pertinent Medical History: DM, HTN, Hypothroidism Current History Elevated BP and HR during evaluation, tori revealed her son this past Wednesday evening, she would welcome speaking w/ a Welsh, she prefers a male Welsh. Social History Home: Single Level Current Living Status: Alone (son is currently staying with her) Entry Into Home: Stairs With Railing Steps Into Home: 3 ADL-Prior Level of Function SCALE: Activities may be completed with or without assistive devices. 0-Qutfvgwtag-jrsztzu completes the activity by him/herself with no assistance from a helper. 5-Set-up or Clean-up Assistance-helper sets up or cleans up; patient completes activity. [place] assists only prior to or following the activity. 4-Supervision or Touching Assistance-helper provides verbal cues and/or touchi ng/steadying and/or contact guard assistance as patient completes activity. Assistance may be provided throughout the activity or intermittently. 3-Partial/Moderate Assistance-helper does LESS THAN HALF the effort. [place] lifts, holds or supports trunk or limbs, but provides less than half the effort. 2-Substantial/Maximal Assistance-helper does MORE THAN HALF the effort. [place] lifts or holds trunk or limbs and provides more than half the effort. 0-Klsqwnwxi-rvgacd does ALL the effort. Patient does none of the effort to complete the activity. Or, the assistance of 2 or more helpers is required for the patient to complete the activity. If activity was not attempted, code reason: 7-Patient Refused. 9-Not Applicable-not attempted and the patient did not perform the activity before the current illness, exacerbation or injury. 10-Not Attempted due to Environmental Limitations-(lack of equipment, weather restraints, etc.). 88-Not Attempted due to Medical Conditions or Safety Concerns. Self Care: Independent Functional Cognition: Independent OT Current Status Subjective Agreeable to OT Mental Status/Objective Patient Orientation: Person, Place, Time, Situation Attachments: IV Current Upper Extremity ROM BUE ROM WFLS Upper Extremity Coordination Requires sustaining BP rate prior to mobility d/t dizziness Upper Extremity Strength +3/5 ADL-Treatment ADL-Current Dons socks EOB figure 4 technique, declines all other ADLS, education for slow movements ns monitoring BP and stabilizing prior to rising from surfaces to reduce fall risk Eating (QC): 6 Oral Hygiene (QC): 5 Shower/Bathe Self (QC): 88 Upper Body Dressing (QC): 4 Lower Body Dressing (QC): 4 On/Off Footwear (QC): 4 Toileting Hygiene (QC): 4 Education OT Patient Education: Correct positioning, Modified ADL techniques, Progress toward Goal/Update tx plan, Purpose of tx/functional activities, Reviewed precautions, Rehab process, Safety issues, Transfer techniques Teaching Recipient: Patient, Family Teaching Methods: Demonstration Response to Teaching: Verbalize Understanding, Reinforcement Needed OT Usp Goals Gauge And Weigh Machine Adjuster Goals Eating (QC): 6 Oral Hygiene (QC): 6 Toileting Hygiene (QC): 6 Shower/Bathe Self (QC): 5 Upper Body Dressing (QC): 6 Lower Body Dressing (QC): 6 On/Off Footwear (QC): 6 1=Demonstrate adherence to instructed precautions during ADL tasks. 2=Patient will verbalize/demonstrate understanding of assistive devices/modifications for ADL. 3=Patient will improve strength/tolerance for activity to enable patient to perform ADL's. OT Education/Plan Problem List/Assessment Assessment: Decreased Activ Tolerance, Decreased Safety Aware, Decreased UE Strength, Impaired Funct Balance, Impaired Self-Care Skills Discharge Recommendations Plan/Recommendations: Continue POC Therapy Discharge Recommendati: Post Acute OT Treatment Plan/Plan of Care Treatment,Training & Education: Yes Patient would benefit from OT for education, treatment and training to promote independence in ADL's, mobility, safety and/or upper extremity function for ADL's. Plan of Care: ADL Retraining, Functional Mobility, Group Exercise/Act as Ind, U E Funct Exercise/Act Treatment Duration: May 07, 2023 Frequency: 3 times per week (3-5 times per week) Rehab Potential: Fair Time Start Time: 12:50 Stop Time: 13:10 DATE: May 03, 2023 Total Time Billed (hr/min): 20 Billed Treatment Time EVM 20 min DAFNE BEAULIEU OT May 03, 2023 13:31
[2023-05-03] MEDS ORDERED: INSU100I14 SQ (15:20)
[2023-05-03] MEDS ORDERED: INSU100I32 SQ (15:20)
[2023-05-03] MEDS: ENOXAPARIN 40 MG/0.4 ML (LOVENOX) SYR SC SCH (20:21)
[2023-05-03] MEDS: cefTRIAXone IV/IM 1,000 MG in NS (IVPB) 50 ML IV SCH (20:21)
[2023-05-04] VITALS (8 sets, daily range): BP systolic 122–195; BP diastolic 60–96
[2023-05-04 04:49] LABS: BASOPHILS % (AUTO) 1 % (0-10); EOSINOPHILS # (AUTO) 0.2 10^3/uL (0.0-0.3); EOSINOPHILS % (AUTO) 4 % (0-10); HEMATOCRIT 37 % (35-52); HEMOGLOBIN 12.3 g/dL (11.5-16.0); LYMPHOCYTES # (AUTO) 1.5 10^3/uL (1.0-4.0); LYMPHOCYTES % (AUTO) 30 % (12-44); MEAN CORPUSCULAR HEMOGLOBIN 30 pg (25-34); MEAN CORPUSCULAR HGB CONC 33 g/dL (32-36); MEAN CORPUSCULAR VOLUME 90 fL (80-99); MEAN PLATELET VOLUME 9.4 fL (9.0-12.2); MONOCYTES # (AUTO) 0.4 10^3/uL (0.0-1.0); MONOCYTES % (AUTO) 7 % (0-12); NEUTROPHILS % (AUTO) 59 % (42-75); PLATELET COUNT 182 10^3/uL (130-400); WHITE BLOOD COUNT 5.1 10^3/uL (4.3-11.0)
[2023-05-04 05:14] LABS: ALBUMIN 3.2 GM/DL (3.2-4.5); BILIRUBIN,TOTAL 0.4 MG/DL (0.1-1.0); CALCIUM 8.7 MG/DL (8.5-10.1); CREATININE SERUM 0.84 MG/DL (0.60-1.30); POTASSIUM 4.1 MMOL/L (3.6-5.0); TOTAL PROTEIN 5.6 GM/DL (6.4-8.2)
[2023-05-04] MEDS: SENNOSIDES 8.6 MG (SENOKOT) TAB PO SCH ×2 (07:45→20:21)
[2023-05-04] MEDS: amLODIPine 5 MG (NORVASC) TAB PO SCH (07:45)
[2023-05-04] MEDS: DOCUSATE SODIUM 100 MG (COLACE) CAP PO SCH ×2 (07:45→20:21)
--- NOTE | 2023-05-04 10:46 | Physical Therapy Daily Note ---
PT Daily Note-Current Subjective Patient agrees to PT. Pain Section J - Health Conditions 1. Rarely or not at all 2. Occasionally 3. Frequently 4. Almost constantly 8. Unable to answer Pain Effect on Sleep: 1 Pain Interference with Therapy: 1 Pain Interference w/Day-to-Day: 1 Mental Status Patient Orientation: Person, Time, Situation Transfers SCALE: Activities may be completed with or without assistive devices. 6-Gnonghetlm-vpzzehk completes the activity by him/herself with no assistance from a helper. 5-Set-up or Clean-up Assistance-helper sets up or cleans up; patient completes activity. [place] assists only prior to or following the activity. 4-Supervision or Touching Assistance-helper provides verbal cues and/or touching/steadying and/or contact guard assistance as patient completes activity. Assistance may be provided throughout the activity or intermittently. 3-Partial/Moderate Assistance-helper does LESS THAN HALF the effort. [place] lifts, holds or supports trunk or limbs, but provides less than half the effort. 2-Substantial/Maximal Assistance-helper does MORE THAN HALF the effort. [place] lifts or holds trunk or limbs and provides more than half the effort. 6-Pxumfelrc-thszey does ALL the effort. Patient does none of the effort to complete the activity. Or, the assistance of 2 or more helpers is required for the patient to complete the activity. If activity was not attempted, code reason: 7-Patient Refused. 9-Not Applicable-not attempted and the patient did not perform the activity before the current illness, exacerbation or injury. 10-Not Attempted due to Environmental Limitations-(lack of equipment, weather restraints, etc.). 88-Not Attempted due to Medical Conditions or Safety Concerns. Lying to Sitting/Side of Bed(Q: 4 Sit to Stand (QC): 4 Chair/Axc-fs-Foxhb Xfer(QC): 4 Gait Training Distance: 250' Walk 10 feet (QC): 4 Walk 50 ft with 2 Turns(QC): 4 Walk 150 ft (QC): 4 Gait Assistive Device: FWW CGA for safety/patient unaware of safety concerns Assessment Patient required VC's for body placement in FWW due to impulsive behavior. Patient tolerated treatment well and is up in recliner with chair alarm activated. PT to continue to increase activity as tolerated by patient. PT Tc Operator Goals Tc Operator Goals PT Retirement Goals Time Frame: May 15, 2023 Roll Left & Right (QC): 6 Sit to Lying (QC): 6 Lying-Sitting on Side/Bed(QC): 6 Sit to Stand (QC): 6 Chair/Ajw-tq-Ctyls Xfer(QC): 6 Toilet Transfer (QC): 6 Walk 10 feet (QC): 6 Walk 50ft with 2 Turns (QC): 6 Walk 150 ft (QC): 6 PT Plan Treatment/Plan Treatment Plan: Continue Plan of Care Treatment Plan: Education, Functional Activity Brian, Functional Strength, Gait, Safety, Therapeutic Exercise, Transfers Treatment Duration: May 15, 2023 Frequency: 5 times per week Estimated Hrs Per Day: .25 hour per day Patient and/or Family Agrees t: Yes Time Time In: 958 Time Out: 1008 DATE: May 04, 2023 Total Billed Treatment Time: 10 Total Billed Treatment 1 visit GT 10 min MARIAMA DIAZ PT May 04, 2023 10:46
--- NOTE | 2023-05-04 10:46 | Diagnostic Imaging Report ---
CT HEAD WO Date: 05/04/2023 10:39 AM Clinical Indication: Altered mental status Comparison: None. Technique: 5 mm axial tomographic images were obtained of the head without contrast. These were viewed on brain and bone windows. One or more of the following dose reduction techniques were utilized: Automated exposure control (AEC), Adjustment of mA and/or kV according to patient size, Use of iterative reconstruction technique such as ASiR, CT scan done according to ALARA and image gently/image wisely Findings: Mild generalized cerebral and cerebellar volume loss. Mild nonspecific periventricular hypoattenuation, most commonly seen with chronic small vessel ischemic disease. Calcified atherosclerosis of the bilateral cavernous and paraclinoid internal carotid arteries and intracranial vertebral arteries. No intra- or extra-axial mass or fluid collection. No acute hemorrhage. The ventricles are normal in size, shape, and morphology. The thomas-white matter junction is normal. The subarachnoid cisterns are patent. The visualized paranasal sinuses are normal. The visualized portions of the orbits and globes are normal. The mastoid air cells are clear. The quality control coordinator topogram shows no lytic lesion or fracture. Impression: No acute intracranial process. Mild cerebral volume loss. Mild chronic small vessel ischemic disease. Dictated by: Dictated on workstation # [id number]
--- NOTE | 2023-05-04 10:54 | Occupational Ther Daily Note ---
OT Current Status-Daily Note Subjective Tearful on arrival, however requires assistance to toilet and agrees to therapy Mental Status/Objective Patient Orientation: Person, Place, Time, Situation ADL-Treatment Periods of recovery in standing to allow dizzy spells to pass, tioleting in bathroom w/ FWW safety kris for position and transfers. Repeat instruction for pushing up from surface not pulling on FWW. OT pulled FWW away and patient pushes up from surface Therapy Code Descriptions/Definitions Functional [place] Measure: 0=Not Assessed/NA 4=Minimal Assistance 1=Total Assistance 5=Supervision or Setup 2=Maximal Assistance 6=Modified [place] 3=Moderate Assistance 7=Complete IndependenceSCALE: Activities may be completed with or without assistive devices. 9-Qfwtyidehf-uiulazo completes the activity by him/herself with no assistance from a helper. 5-Set-up or Clean-up Assistance-helper sets up or cleans up; patient completes activity. [place] assists only prior to or following the activity. 4-Supervision or Touching Assistance-helper provides verbal cues and/or t ouching/steadying and/or contact guard assistance as patient completes activity. Assistance may be provided throughout the activity or intermittently. 3-Partial/Moderate Assistance-helper does LESS THAN HALF the effort. [place] lifts, holds or supports trunk or limbs, but provides less than half the effort. 2-Substantial/Maximal Assistance-helper does MORE THAN HALF the effort. [place] lifts or holds trunk or limbs and provides more than half the effort. 4-Pkklldycz-yumlxp does ALL the effort. Patient does none of the effort to complete the activity. Or, the assistance of 2 or more helpers is required for the patient to complete the activity. If activity was not attempted, code reason: 7-Patient Refused. 9-Not Applicable-not attempted and the patient did not perform the activity before the current illness, exacerbation or injury. 10-Not Attempted due to Environmental Limitations-(lack of equipment, weather restraints, etc.). 88-Not Attempted due to Medical Conditions or Safety Concerns. Eating (QC): 6 Oral Hygiene (QC): 4 (standing at sink) Upper Body Dressing (QC): 4 Lower Body Dressing (QC): 4 On/Off Footwear: 5 Toileting Hygiene (QC): 4 Toilet Transfer (QC): 4 Education OT Patient Education: Correct positioning, Modified ADL techniques, Progress toward Goal/Update tx plan, Purpose of tx/functional activities, Reviewed precautions, Rehab process, Safety issues, Transfer techniques Teaching Recipient: Patient Teaching Methods: Demonstration, Discussion Response to Teaching: Reinforcement Needed OT Longterm Goals Alumnae Secretary Goals Eating (QC): 6 Oral Hygiene (QC): 6 Toileting Hygiene (QC): 6 Shower/Bathe Self (QC): 5 Upper Body Dressing (QC): 6 Lower Body Dressing (QC): 6 On/Off Footwear (QC): 6 1=Demonstrate adherence to instructed precautions during ADL tasks. 2=Patient will verbalize/demonstrate understanding of assistive devic es/modifications for ADL. 3=Patient will improve strength/tolerance for activity to enable patient to perform ADL's. OT Education/Plan Problem List/Assessment Assessment: Decreased Activ Tolerance, Decreased Safety Aware, Impaired Coordination, Impaired Funct Balance, Impaired Self-Care Skills Discharge Recommendations Plan/Recommendations: Continue POC Treatment Plan/Plan of Care Treatment,Training & Education: Yes Patient would benefit from OT for education, treatment and training to promote independence in ADL's, mobility, safety and/or upper extremity function for ADL's. Plan of Care: ADL Retraining, Functional Mobility, Group Exercise/Act as Ind, UE Funct Exercise/Act Treatment Duration: May 07, 2023 Frequency: 3 times per week (3-5 times per week) Rehab Potential: Fair Chair alarm placed in recliner, family present, all needs met Time Start Time: 09:45 Stop Time: 10:08 DATE: May 04, 2023 Total Time Billed (hr/min): 23 Billed Treatment Time ADL 23 DAFNE BEAULIEU OT May 04, 2023 10:54
--- NOTE | 2023-05-04 11:09 | Progress Note ---
NICKIE DELVALLE 05/04[birth year]23 1109: Subjective Date Seen by a Provider: May 04, 2023 Time Seen by a Provider: 08:10 Subjective/Events-last exam Patient seen and examined at bedside this morning. She is very tearful and confused on exam. She says "they have taken everything from me". I attempted to clarify and understand her concerns. This was largely unsuccessful. She would not answer my questions and just wanted to rest. She denies any pain. Has tolerated a few bites of her breakfast without N/V/D. Is more altered than on yesterday's exam. Review of Systems General: No Chills HEENT: No Head Aches Pulmonary: No Dyspnea Cardiovascular: No: Chest Pain Gastrointestinal: No: Vomiting, Abdominal Pain Genitourinary: No Dysuria Neurological: Confusion Difficult to obtain due to patient's mental status Focused Exam Lactate Level 05/02/23 23:00: Lactic Acid Level 1.72 Objective Exam Last Set of Vital Signs Vital Signs Date Time Temp Pulse Resp B/P (MAP) Pulse Ox O2 Delivery O2 Flow Rate FiO2 05/04/23 08:37 Room Air 05/04/23 07:33 36.3 88 18 148/68 (94) 97 05/02/23 21:51 21 Capillary Refill : Less Than 3 Seconds I&O Intake and Output 05/04/23 00:00 Intake Total 1760 ml Balance 1760 ml Intake Oral 760 ml IV Total 1000 ml # Voids 2 General: Alert, Other (confused) HEENT: Atraumatic, EOMI Neck: Supple Lungs: Clear to Auscultation, Normal Air Movement Heart: Regular Rate, Normal S1, Normal S2 Abdomen: Soft, No Tenderness Extremities: No Cyanosis, No Edema Neuro: Normal Tone, Sensation Intact Psych/Mental Status: Other (altered. Confused and tearful) Results Lab Laboratory Tests 05/03/23 12:12: Glucometer 148H 05/03/23 13:58: Glucometer 123H 05/03/23 15:33: Glucometer 120H 05/03/23 18:16: Glucometer 158H 05/03/23 21:08: Glucometer 177H 05/03/23 23:14: Glucometer 147H 05/04/23 02:12: Glucometer 146H 05/04/23 04:36: Glucometer 135H 05/04/23 04:43: White Blood Count 5.1, Red Blood Count 4.13, Hemoglobin 12.3, Hematocrit 37, Mean Corpuscular Volume 90, Mean Corpuscular Hemoglobin 30, Mean Corpuscular Hemoglobin Concent 33, Red Cell Distribution Width 13.5, Platelet Count 182, Mean Platelet Volume 9.4, Immature Granulocyte % (Auto) 0, Neutrophils (%) (Auto) 59, Lymphocytes (%) (Auto) 30, Monocytes (%) (Auto) 7, Eosinophils (%) (Auto) 4, Basophils (%) (Auto) 1, Neutrophils # (Auto) 3.0, Lymphocytes # (Auto) 1.5, Monocytes # (Auto) 0.4, Eosinophils # (Auto) 0.2, Basophils # (Auto) 0.0, Immature Granulocyte # (Auto) 0.0, Sodium Level 138, Potassium Level 4.1, Chloride Level 110H, Carbon Dioxide Level 22, Anion Gap 6, Blood Urea Nitrogen 16, Creatinine 0.84, Estimat Glomerular Filtration Rate 72, BUN/Creatinine Ratio 19, Glucose Level 163H, Calcium Level 8.7, Corrected Calcium 9.3, Total Bilirubin 0.4, Aspartate Amino Transf (AST/SGOT) 17, Alanine Aminotransferase (ALT/SGPT) 15, Alkaline Phosphatase 48, Total Protein 5.6L, Albumin 3.2, Smear Scan 05/04/23 07:38: Glucometer 122H Microbiology 05/02/23 Blood Culture - Preliminary, Resulted No growth 05/02/23 Urine Culture - Preliminary, Resulted Escherichia coli Assessment/Plan Assessment/Plan Assess & Plan/Chief Complaint Hypoglycemic event in the setting of Type 2 DM on insulin Altered mental status Mental status worsened today Continue D5NS at 60mls/hr with regular glucose checks, most recent level 122 Patient denies hx of hypoglycemic events Needs home diabetic medications refilled once discharged CT head without contrast to rule out physical etiology of altered mental status such as hemorrhage, ischemia, or mass CT showed chronic small vessel ischemic changes and volume loss. No acute intracranial abnormality Electrolytes remain within normal limits Given one dose of lorazepam due to agitation on evening of 05/03 Hx of recent of her son a few months ago. Has been very hard on her. Likely needs psychiatric/therapy services Could be candidate for senior behavioral health, will continue to monitor her clinical condition UTI UA positive for LE, nitrites, WBCs, and bacteria urine culture grew vizcarra-susceptible e coli blood cx negative Continue ceftriaxone 1000mg remains afebrile with normal WBC count Lactic acid normal HTN urgency 198/106 on admission no signs of end organ dysfunction does not appear to be contributing to encephalopathy, mental status has remained altered in spite of correction of blood pressure hydralazine given in ED Oral amlodipine 5mg continue to monitor pressure hydralazine as needed Mild hypothermia lowest temp 33.8, improved to 36.3 passive external warming with blankets DVT ppx- lovenox Diet- regular Code- full Clinical Quality Measures Admission Status Admission Dx Hypoglycemic event in the setting of Type 2 DM on insulin Altered mental status Mental status improved Continue D5NS at 60mls/hr with regular glucose checks, most recent level 166 Patient denies hx of hypoglycemic events Needs home diabetic medications refilled once discharged Move to 4th floor today UTI UA positive for LE, nitrites, WBCs, and bacteria urine culture grew gram negative nils blood cx pending Continue ceftriaxone 1000mg remains afebrile with normal WBC count Lactic acid normal HTN urgency 198/106 on admission no signs of end organ dysfunction mental status changes likely related to glucose level rather than hyp ertensive encephalopathy hydralazine given in ED Oral amlodipine 5mg continue to monitor pressure hydralazine as needed Mild hypothermia lowest temp 33.8, improved to 36.2 passive external warming with blankets DVT ppx- lovenox Diet- regular Code- full EMILY HOWELL DO 05/04/231933: Supervisory-Addendum Brief Verification & Attestation Participated in pt care: history, MDM, physical Personally performed: exam, history, MDM, supervision of care Care discussed with: Medical Student Procedures: n/a Results interpretation: Verified all documentation Verification and Attestation of Medical Student E/M Service A medical student performed and documented this service in my presence. I reviewed and verified all information documented by the medical student and made modifications to such information, when appropriate. I personally performed the physical exam and medical decision making. Emily Howell May 04, 2023,19:34 NICKIE DELVALLE May 04, 2023 11:09 EMILY HOWELL DO May 04, 2023 19:34
[2023-05-04] MEDS: inSUlin ASPART (NovoLOG) 1 UNIT/0.01 ML (CHARGE PER UNIT) SC SCH ×3 (11:44→20:21)
[2023-05-04] MEDS: D5 NS 1000 ML IV SOLUTION 1,000 ML IV SCH (14:49)
[2023-05-04] MEDS: ENOXAPARIN 40 MG/0.4 ML (LOVENOX) SYR SC SCH (20:20)
[2023-05-04] MEDS: cefTRIAXone IV/IM 1,000 MG in NS (IVPB) 50 ML IV SCH (20:21)
[2023-05-05 04:31] VITALS: BP 132/74
[2023-05-05 04:55] LABS: BASOPHILS % (AUTO) 1 % (0-10); EOSINOPHILS # (AUTO) 0.2 10^3/uL (0.0-0.3); EOSINOPHILS % (AUTO) 5 % (0-10); HEMATOCRIT 36 % (35-52); HEMOGLOBIN 11.8 g/dL (11.5-16.0); LYMPHOCYTES # (AUTO) 1.5 10^3/uL (1.0-4.0); LYMPHOCYTES % (AUTO) 39 % (12-44); MEAN CORPUSCULAR HEMOGLOBIN 29 pg (25-34); MEAN CORPUSCULAR HGB CONC 33 g/dL (32-36); MEAN CORPUSCULAR VOLUME 91 fL (80-99); MEAN PLATELET VOLUME 9.5 fL (9.0-12.2); MONOCYTES # (AUTO) 0.4 10^3/uL (0.0-1.0); MONOCYTES % (AUTO) 10 % (0-12); NEUTROPHILS # (AUTO) 1.8 10^3/uL (1.8-7.8); NEUTROPHILS % (AUTO) 45 % (42-75); PLATELET COUNT 178 10^3/uL (130-400); WHITE BLOOD COUNT 3.9 10^3/uL (4.3-11.0)
[2023-05-05 05:11] LABS: ALBUMIN 3.2 GM/DL (3.2-4.5); BILIRUBIN,TOTAL 0.6 MG/DL (0.1-1.0); CALCIUM 8.9 MG/DL (8.5-10.1); CREATININE SERUM 0.81 MG/DL (0.60-1.30); POTASSIUM 4.1 MMOL/L (3.6-5.0); TOTAL PROTEIN 5.6 GM/DL (6.4-8.2)
[2023-05-05] MEDS: inSUlin ASPART (NovoLOG) 1 UNIT/0.01 ML (CHARGE PER UNIT) SC SCH ×2 (05:31→11:22)
[2023-05-05] MEDS: D5 NS 1000 ML IV SOLUTION 1,000 ML IV SCH (05:56)
[2023-05-05 07:21] VITALS: BP 137/78
[2023-05-05] MEDS: amLODIPine 5 MG (NORVASC) TAB PO SCH (08:27)
[2023-05-05] MEDS: DOCUSATE SODIUM 100 MG (COLACE) CAP PO SCH (08:27)
[2023-05-05] MEDS: SENNOSIDES 8.6 MG (SENOKOT) TAB PO SCH (08:27)
[2023-05-05 11:15] VITALS: BP 149/77
[2023-05-05] MEDS ORDERED: CEPH500T PO (11:39)
[2023-05-05] MEDS ORDERED: NEED-474 MC (11:39)
[2023-05-05] MEDS ORDERED: INSU100I14 SQ (11:39)
[2023-05-05] MEDS ORDERED: INSU100I32 SQ (11:39)
[2023-05-05] MEDS ORDERED: AMLO-250 PO (11:39)
--- NOTE | 2023-05-05 11:39 | Discharge Summary ---
Diagnosis/Chief Complaint Date of Admission May 04, 2023 at 11:42 Date of Discharge Discharge Date: May 05, 2023 Discharge Diagnosis Severe hypoglycemia likely due to oral hypoglycemic agent or nonpurposeful overdose of insulin UTI Confusion Discharge Summary Discharge Physical Examination Allergies: Coded Allergies: cortisone (Unverified Allergy, Mild, NAUSEA, 02/08/10) amoxicillin (Unverified Adverse Reaction, Severe, HIVES, 02/08/10) Vitals & I&Os Vital Signs Date Time Temp Pulse Resp B/P (MAP) Pulse Ox O2 Delivery O2 Flow Rate FiO2 05/05/23 13:04 36.6 82 18 149/77 96 Room Air 0.00 05/02/23 21:51 21 General Appearance: Alert, Oriented X3, Cooperative, Other (Poor recall) Respiratory: Clear to Auscultation Cardiovascular: Regular Rate Hospital Course Was the Problem List Reviewed?: Yes Gloria Alford is a 78F who was admitted for altered mental status and hypoglycemia on 05/02 HPI from ED "PT ARRIVES VIA EMS FROM HOME EMS REPORT THAT PT'S SON CALLED BECAUSE PT "WASN'T ACTING RIGHT" PT IS DIABETIC, SON DID NOT CHECK BLOOD SUGAR, BUT GAVE HER SOMETHING TO DRINK AND A TOOTSIE ROLL ABOUT 45 MINUTES AGO BLOOD GLUCOSE WAS 23 WHEN EMS ARRIVED AT SCENE, AND PT WAS LETHARGIC, AGITATED, VERY CONFUSED, YELLING AT SON EMS GAVE 125 ML OF D10 AND REPEAT BLOOD GLUCOSE WAS 213 BLOOD PRESSURE WAS 207 SYSTOLIC FOR EMS. ON ARRIVAL, PT IS STILL SOMEWHAT CONFUSED--HAS NO RECOLLECTION OF ANY OF TODAY'S EVENTS, BUT AWAKE/ALERT AND SHIVERING. PT DOES STATE THAT "I THINK MY DIABETES HIT ME" BUT IS UNABLE TO ELABORATE ANY FURTHER, SHE STATES SHE DOES NOT KNOW WHAT HAPPENED. SHE C/O BEING COLD, BUT NO OTHER PHYSICAL COMPLAINTS." In the ED she was given dextrose and hydralazine. She was admitted to the ICU for management of her altered mental status, HTN, and hypoglycemia HPI from admission "Gloria Alford is a 78yo F with past medical hx of HTN, HLD, and T2DM requiring insulin. She presented to the ED on 05/02 after her son reported her to be lethargic, agitated, and confused. EMS measured her blood sugar at 23. She was also hypertensive. In the ED she was given D5NS and hydralazine. She was also found to have evidence of a UTI. She was admitted to the ICU for management of her hypoglycemia and hypertensive urgency. She was seen at bedside this morning. She is alert and oriented x4 with appropriate answers to questions. She reports that she is in between PCPs due to a [facility] and has not taken her insulin for approximately 1 week. She has taken her glipizide. She denies any recent hx of hypoglycemic events. Her nutritional intake has been somewhat decreased since the of her son in the spring. She denies any fever, chills, hematuria, dysuria, or increased frequency. She denies chest pain and shortness of breath." She was kept on D5NS which corrected her glucose levels and encouraged PO intake. She remained altered with waxing and waning levels of confusion and tearfulness. Her hypoglycemia improved with diet and fluids. Her BP was in the HTN urgency range in the ED. This was corrected with hydralazine then her home meds were restarted. Her blood pressure has been stable with no signs of end organ dysfunction. She required anxiolytics at times due to agitation and confusion. Her mental status was much improved on 05/05 with no tearfulness and much more alert and answering questions correctly. CT of the head was obtained to rule out organic causes of her mental status. This was negative for acute intracranial process. She was found to have a UTI and was treated with ceftriaxo ne. She remained afebrile with normal WBC. Her mental status improved on 05/05 and [facility] completed evaluation. She was discharged on 05/05 with follow up with [facility]. Follow up with PCP at [facility] within a week. Refilled her insulin and needles. Labs (last 24 hrs) Laboratory Tests 05/02/23 18:55: White Blood Count 5.8, Red Blood Count 4.62, Hemoglobin 13.8, Hematocrit 41, Mean Corpuscular Volume 90, Mean Corpuscular Hemoglobin 30, Mean Corpuscular Hemoglobin Concent 33, Red Cell Distribution Width 13.2, Platelet Count 187, Mean Platelet Volume 9.5, Immature Granulocyte % (Auto) 1, Neutrophils (%) (Auto) 70, Lymphocytes (%) (Auto) 20, Monocytes (%) (Auto) 7, Eosinophils (%) (Auto) 1, Basophils (%) (Auto) 1, Neutrophils # (Auto) 4.1, Lymphocytes # (Auto) 1.2, Monocytes # (Auto) 0.4, Eosinophils # (Auto) 0.1, Basophils # (Auto) 0.1, Immature Granulocyte # (Auto) 0.0, Sodium Level 141, Potassium Level 3.6, Chloride Level 106, Carbon Dioxide Level 23, Anion Gap 12, Blood Urea Nitrogen 20H, Creatinine 0.86, Estimat Glomerular Filtration Rate 70, BUN/Creatinine Ratio 23, Glucose Level 154H, Mean Blood Glucose 180H, Hemoglobin A1c 7.9H, Calcium Level 9.2, Corrected Calcium 9.4, Magnesium Level 2.0, Total Bilirubin 0.3, Aspartate Amino Transf (AST/SGOT) 24, Alanine Aminotransferase (ALT/SGPT) 18, Alkaline Phosphatase 49, Total Protein 6.6, Albumin 3.7, Amylase Level 65, Lipase 52, Beta-Hydroxybutyrate (Chem panel) 0.05 05/02/23 20:11: Urine Color YELLOW, Urine Clarity CLEAR, Urine pH 8.0, Urine Specific [place] 1.015L, Urine Protein NEGATIVE, Urine Glucose (UA) 2+H, Urine Ketones NEGATIVE, Urine Nitrite POSITIVEH, Urine Bilirubin NEGATIVE, Urine Urobilinogen 0.2, Urine Leukocyte Esterase 3+H, Urine RBC (Auto) TRACE-IH, Urine RBC 0-2, Urine WBC 10- 25H, Urine Squamous Epithelial Cells 0-2, Urine Crystals NONE, Urine Bacteria LARGEH, Urine Casts NONE, Urine Mucus NEGATIVE, Urine Culture Indicated YES 05/02/23 21:18: Glucometer 272H 05/02/23 22:05: Glucometer 296H 05/02/23 23:00: Lactic Acid Level 1.72 05/02/23 23:49: Glucometer 261H 05/03/23 02:23: Glucometer 169H 05/03/23 04:14: White Blood Count 5.2, Red Blood Count 4.21, Hemoglobin 12.5, Hematocrit 37, Mean Corpuscular Volume 89, Mean Corpuscular Hemoglobin 30, Mean Corpuscular Hemoglobin Concent 33, Red Cell Distribution Width 13.3, Platelet Count 209, Mean Platelet Volume 9.9, Immature Granulocyte % (Auto) 0, Neutrophils (%) (Auto) 57, Lymphocytes (%) (Auto) 30, Monocytes (%) (Auto) 9, Eosinophils (%) (Auto) 2, Basophils (%) (Auto) 1, Neutrophils # (Auto) 3.0, Lymphocytes # (Auto) 1.6, Monocytes # (Auto) 0.5, Eosinophils # (Auto) 0.1, Basophils # (Auto) 0.1, Immature Granulocyte # (Auto) 0.0, Sodium Level 138, Potassium Level 3.6, Chl oride Level 109H, Carbon Dioxide Level 22, Anion Gap 7, Blood Urea Nitrogen 17, Creatinine 0.75, Estimat Glomerular Filtration Rate 82, BUN/Creatinine Ratio 23, Glucose Level 141H, Calcium Level 8.4L, Corrected Calcium 9.0, Total Bilirubin 0.4, Aspartate Amino Transf (AST/SGOT) 19, Alanine Aminotransferase (ALT/SGPT) 16, Alkaline Phosphatase 45, Total Protein 5.5L, Albumin 3.3 05/03/23 06:21: Glucometer 112H 05/03/23 07:35: Glucometer 140H 05/03/23 09:06: Glucometer 166H 05/03/23 10:47: Glucometer 207H 05/03/23 12:12: Glucometer 148H 05/03/23 13:58: Glucometer 123H 05/03/23 15:33: Glucometer 120H 05/03/23 18:16: Glucometer 158H 05/03/23 21:08: Glucometer 177H 05/03/23 23:14: Glucometer 147H 05/04/23 02:12: Glucometer 146H 05/04/23 04:36: Glucometer 135H 05/04/23 04:43: White Blood Count 5.1, Red Blood Count 4.13, Hemoglobin 12.3, Hematocrit 37, Mean Corpuscular Volume 90, Mean Corpuscular Hemoglobin 30, Mean Corpuscular Hemoglobin Concent 33, Red Cell Distribution Width 13.5, Platelet Count 182, Mean Platelet Volume 9.4, Immature Granulocyte % (Auto) 0, Neutrophils (%) (Auto) 59, Lymphocytes (%) (Auto) 30, Monocytes (%) (Auto) 7, Eosinophils (%) (Auto) 4, Basophils (%) (Auto) 1, Neutrophils # (Auto) 3.0, Lymphocytes # (Auto) 1.5, Monocytes # (Auto) 0.4, Eosinophils # (Auto) 0.2, Basophils # (Auto) 0.0, Immature Granulocyte # (Auto) 0.0, Sodium Level 138, Potassium Level 4.1, Chloride Level 110H, Carbon Dioxide Level 22, Anion Gap 6, Blood Urea Nitrogen 16, Creatinine 0.84, Estimat Glomerular Filtration Rate 72, BUN/Creatinine Ratio 19, Glucose Level 163H, Calcium Level 8.7, Corrected Calcium 9.3, Total Bilirubin 0.4, Aspartate Amino Transf (AST/SGOT) 17, Alanine Aminotransferase (ALT/SGPT) 15, Alkaline Phosphatase 48, Total Protein 5.6L, Albumin 3.2, Smear Scan 05/04/23 07:38: Glucometer 122H 05/04/23 11:16: Glucometer 165H 05/04/23 15:22: Glucometer 136H 05/04/23 20:14: Glucometer 215H 05/05/23 04:48: White Blood Count 3.9L, Red Blood Count 4.01, Hemoglobin 11.8, Hematocrit 36, Mean Corpuscular Volume 91, Mean Corpuscular Hemoglobin 29, Mean Corpuscular Hemoglobin Concent 33, Red Cell Distribution Width 13.3, Platelet Count 178, Mean Platelet Volume 9.5, Immature Granulocyte % (Auto) 0, Neutrophils (%) (Auto) 45, Lymphocytes (%) (Auto) 39, Monocytes (%) (Auto) 10, Eosinophils (%) (Auto) 5, Basophils (%) (Auto) 1, Neutrophils # (Auto) 1.8, Lymphocytes # (Auto) 1.5, Monocytes # (Auto) 0.4, Eosinophils # (Auto) 0.2, Basophils # (Auto) 0.0, Immature Granulocyte # (Auto) 0.0, Sodium Level 139, Potassium Level 4.1, Chloride Level 109H, Carbon Dioxide Level 23, Anion Gap 7, Blood Urea Nitrogen 18, Creatinine 0.81, Estimat Glomerular Filtration Rate 75, BUN/Creatinine Ratio 22, Glucose Level 147H, Calcium Level 8.9, Corrected Calcium 9.5, Total Bilirubin 0.6, Aspartate Amino Transf (AST/SGOT) 16, Alanine Aminotransferase ( ALT/SGPT) 15, Alkaline Phosphatase 48, Total Protein 5.6L, Albumin 3.2 05/05/23 10:12: Glucometer 221H Microbiology 05/02/23 Blood Culture - Preliminary, Resulted No growth 05/02/23 Urine Culture - Final, Complete Escherichia coli Aerococcus urinae See Comments Pending Labs Microbiology Date/Time Source Procedure Growth Status 05/02/23 23:03 Peripheral Rt Ac Blood Culture - Preliminary No growth Resulted 05/02/23 23:00 Peripheral Lt Ac Blood Culture - Preliminary No growth Resulted 05/02/23 20:11 Urine Straight Cath, In/Out Urine Culture - Final Escherichia coli Aerococcus urinae See Comments Complete Laboratory Tests 05/02/23 18:55: White Blood Count 5.8, Red Blood Count 4.62, Hemoglobin 13.8, Hematocrit 41, Mean Corpuscular Volume 90, Mean Corpuscular Hemoglobin 30, Mean Corpuscular Hemoglobin Concent 33, Red Cell Distribution Width 13.2, Platelet Count 187, Mean Platelet Volume 9.5, Immature Granulocyte % (Auto) 1, Neutrophils (%) (Auto) 70, Lymphocytes (%) (Auto) 20, Monocytes (%) (Auto) 7, Eosinophils (%) (Auto) 1, Basophils (%) (Auto) 1, Neutrophils # (Auto) 4.1, Lymphocytes # (Auto) 1.2, Monocytes # (Auto) 0.4, Eosinophils # (Auto) 0.1, Basophils # (Auto) 0.1, Immature Granulocyte # (Auto) 0.0, Sodium Level 141, Potassium Level 3.6, Chloride Level 106, Carbon Dioxide Level 23, Anion Gap 12, Blood Urea Nitrogen 20, Creatinine 0.86, Estimat Glomerular Filtration Rate 70, BUN/Creatinine Ratio 23, Glucose Level 154, Mean Blood Glucose 180, Hemoglobin A1c 7.9, Calcium Level 9.2, Corrected Calcium 9.4, Magnesium Level 2.0, Total Bilirubin 0.3, Aspartate Amino Transf (AST/SGOT) 24, Alanine Aminotransferase (ALT/SGPT) 18, Alkaline Phosphatase 49, Total Protein 6.6, Albumin 3.7, Amylase Level 65, Lipase 52, Beta-Hydroxybutyrate (Chem panel) 0.05 05/02/23 20:11: Urine Color YELLOW, Urine Clarity CLEAR, Urine pH 8.0, Urine Specific [place] 1.015, Urine Protein NEGATIVE, Urine Glucose (UA) 2+, Urine Ketones NEGATIVE, Urine Nitrite POSITIVE, Urine Bilirubin NEGATIVE, Urine Urobilinogen 0.2, Urine Leukocyte Esterase 3+, Urine RBC (Auto) TRACE-I, Urine RBC 0-2, Urine WBC 10-25, Urine Squamous Epithelial Cells 0-2, Urine Crystals NONE, Urine Bacteria LARGE, Urine Casts NONE, Urine Mucus NEGATIVE, Urine Culture Indicated YES 05/02/23 21:18: Glucometer 272 05/02/23 22:05: Glucometer 296 05/02/23 23:00: Lactic Acid Level 1.72 05/02/23 23:49: Glucometer 261 05/03/23 02:23: Glucometer 169 05/03/23 04:14: White Blood Count 5.2, Red Blood Count 4.21, Hemoglobin 12.5, Hematocrit 37, M chepe Corpuscular Volume 89, Mean Corpuscular Hemoglobin 30, Mean Corpuscular Hemoglobin Concent 33, Red Cell Distribution Width 13.3, Platelet Count 209, Mean Platelet Volume 9.9, Immature Granulocyte % (Auto) 0, Neutrophils (%) (Auto) 57, Lymphocytes (%) (Auto) 30, Monocytes (%) (Auto) 9, Eosinophils (%) (Auto) 2, Basophils (%) (Auto) 1, Neutrophils # (Auto) 3.0, Lymphocytes # (Auto) 1.6, Monocytes # (Auto) 0.5, Eosinophils # (Auto) 0.1, Basophils # (Auto) 0.1, Immature Granulocyte # (Auto) 0.0, Sodium Level 138, Potassium Level 3.6, Chloride Level 109, Carbon Dioxide Level 22, Anion Gap 7, Blood Urea Nitrogen 17, Creatinine 0.75, Estimat Glomerular Filtration Rate 82, BUN/Creatinine Ratio 23, Glucose Level 141, Calcium Level 8.4, Corrected Calcium 9.0, Total Bilirubin 0.4, Aspartate Amino Transf (AST/SGOT) 19, Alanine Aminotransferase (ALT/SGPT) 16, Alkaline Phosphatase 45, Total Protein 5.5, Albumin 3.3 05/03/23 06:21: Glucometer 112 05/03/23 07:35: Glucometer 140 05/03/23 09:06: Glucometer 166 05/03/23 10:47: Glucometer 207 05/03/23 12:12: Glucometer 148 05/03/23 13:58: Glucometer 123 05/03/23 15:33: Glucometer 120 05/03/23 18:16: Glucometer 158 05/03/23 21:08: Glucometer 177 05/03/23 23:14: Glucometer 147 05/04/23 02:12: Glucometer 146 05/04/23 04:36: Glucometer 135 05/04/23 04:43: White Blood Count 5.1, Red Blood Count 4.13, Hemoglobin 12.3, Hematocrit 37, Mean Corpuscular Volume 90, Mean Corpuscular Hemoglobin 30, Mean Corpuscular Hemoglobin Concent 33, Red Cell Distribution Width 13.5, Platelet Count 182, Mean Platelet Volume 9.4, Immature Granulocyte % (Auto) 0, Neutrophils (%) (Auto) 59, Lymphocytes (%) (Auto) 30, Monocytes (%) (Auto) 7, Eosinophils (%) (Auto) 4, Basophils (%) (Auto) 1, Neutrophils # (Auto) 3.0, Lymphocytes # (Auto) 1.5, Monocytes # (Auto) 0.4, Eosinophils # (Auto) 0.2, Basophils # (Auto) 0.0, Immature Granulocyte # (Auto) 0.0, Sodium Level 138, Potassium Level 4.1, Chloride Level 110, Carbon Dioxide Level 22, Anion Gap 6, Blood Urea Nitrogen 16, Creatinine 0.84, Estimat Glomerular Filtration Rate 72, BUN/Creatinine Ratio 19, Glucose Level 163, Calcium Level 8.7, Corrected Calcium 9.3, Total Bilirubin 0.4, Aspartate Amino Transf (AST/SGOT) 17, Alanine Aminotransferase (ALT/SGPT) 15, Alkaline Phosphatase 48, Total Protein 5.6, Albumin 3.2, Smear Scan 05/04/23 07:38: Glucometer 122 05/04/23 11:16: Glucometer 165 05/04/23 15:22: Glucometer 136 05/04/23 20:14: Glucometer 215 05/05/23 04:48: White Blood Count 3.9, Red Blood Count 4.01, Hemoglobin 11.8, Hematocrit 36, Mean Corpuscular Volume 91, Mean Corpuscular Hemoglobin 29, Mean Corpuscular Hemoglobin Concent 33, Red Cell Distribution Width 13.3, Platelet Count 178, Mean Platelet Volume 9.5, Immature Granulocyte % (Auto) 0, Neutrophils (%) (Auto) 45, Lymphocytes (%) (Auto) 39, Monocytes (%) (Auto) 10, Eosinophils (%) (Auto) 5, Basophils (%) (Auto) 1, Neutrophils # (Auto) 1.8, Lymphocytes # (Auto) 1.5, Monocytes # (Auto) 0.4, Eosinophils # (Auto) 0.2, Basophils # (Auto) 0.0, Immature Granulocyte # (Auto) 0.0, Sodium Level 139, Potassium Level 4.1, Chloride Level 109, Carbon Dioxide Level 23, Anion Gap 7, Blood Urea Nitrogen 18, Creatinine 0.81, Estimat Glomerular Filtration Rate 75, BUN/Creatinine Ratio 22, Glucose Level 147, Calcium Level 8.9, Corrected Calcium 9.5, Total Bilirubin 0.6, Aspartate Amino Transf (AST/SGOT) 16, Alanine Aminotransferase (ALT/SGPT) 15, Alkaline Phosphatase 48, Total Protein 5.6, Albumin 3.2 05/05/23 10:12: Glucometer 221 Discharge Home Medications: Active Scripts Active Advocate Pen [place] ([place], Insulin Disposable) 31 Gauge X 5/16" Dis.needle Each MC ACHS Cephalexin 500 Mg Tablet 500 Mg PO TID Amlodipine Besylate 5 Mg Tablet 5 Mg PO DAILY Tresiba Flextouch U-100 (Insulin Degludec) 100 Unit/Ml (3 Ml) Insuln.pen 10 Unit SQ HS PRN Novolog Flexpen (Insulin Aspart) 100 Unit/Ml (3 Ml) Solution 3 Units SQ AC PRN Instructions to patient/family Please see electronic discharge instructions given to patient. DONAVAN HOWELL DO May 05, 2023 11:39
--- NOTE | 2023-05-05 12:55 | Progress Note ---
NICKIE DELVALLE 05/05/23 1255: Progress Note Gloria Alford is a 78F who was admitted for altered mental status and hypoglycemia on 05/02 HPI from ED "PT ARRIVES VIA EMS FROM HOME EMS REPORT THAT PT'S SON CALLED BECAUSE PT "WASN'T ACTING RIGHT" PT IS DIABETIC, SON DID NOT CHECK BLOOD SUGAR, BUT GAVE HER SOMETHING TO DRINK AND A TOOTSIE ROLL ABOUT 45 MINUTES AGO BLOOD GLUCOSE WAS 23 WHEN EMS ARRIVED AT SCENE, AND PT WAS LETHARGIC, AGITATED, VERY CONFUSED, YELLING AT SON EMS GAVE 125 ML OF D10 AND REPEAT BLOOD GLUCOSE WAS 213 BLOOD PRESSURE WAS 207 SYSTOLIC FOR EMS. ON ARRIVAL, PT IS STILL SOMEWHAT CONFUSED--HAS NO RECOLLECTION OF ANY OF TODAY'S EVENTS, BUT AWAKE/ALERT AND SHIVERING. PT DOES STATE THAT "I THINK MY DIABETES HIT ME" BUT IS UNABLE TO ELABORATE ANY FURTHER, SHE STATES SHE DOES NOT KNOW WHAT HAPPENED. SHE C/O BEING COLD, BUT NO OTHER PHYSICAL COMPLAINTS." In the ED she was given dextrose and hydralazine. She was admitted to the ICU for management of her altered mental status, HTN, and hypoglycemia HPI from admission "Gloria Alford is a 78yo F with past medical hx of HTN, HLD, and T2DM requiring insulin. She presented to the ED on 05/02 after her son reported her to be lethargic, agitated, and confused. EMS measured her blood sugar at 23. She was also hypertensive. In the ED she was given D5NS and hydralazine. She was also found to have evidence of a UTI. She was admitted to the ICU for management of her hypoglycemia and hypertensive urgency. She was seen at bedside this morning. She is alert and oriented x4 with appropriate answers to questions. She reports that she is in between PCPs due to a recent [place] [facility] and has not taken her insulin for approximately 1 week. She has taken her glipizide. She denies any recent hx of hypoglycemic events. Her nutritional intake has been somewhat decreased since the of her son in the spring. She denies any fever, chills, hematuria, dysuria, or increased frequency. She denies chest pain and shortness of breath." She was kept on D5NS which corrected her glucose levels and encouraged PO intake. She remained altered with waxing and waning levels of confusion and tearfulness. Her hypoglycemia improved with diet and fluids. Her BP was in the HTN urgency range in the ED. This was corrected with hydralazine then her home meds were restarted. Her blood pressure has been stable with no signs of end organ dysfunction. She required anxiolytics at times due to agitation and confusion. Her mental status was much improved on 05/05 with no tearfulness and much more alert and answering questions correctly. CT of the head was obtained to rule out organic causes of her mental status. This was negative for acute intracranial process. She was found to have a UTI and was treated with ceftriaxone. She remained afebrile with normal WBC. Her mental status improved on 05/05 and [facility] completed evaluation. She was discharged on 05/05 with follow up with behavioral health. Follow up with PCP at [facility] within a week. Refilled her insulin and needles. EMILY HOWELL DO 05/05/23 2010: Supervisory-Addendum Brief Verification & Attestation Participated in pt care: history, MDM, physical Personally performed: exam, history, MDM, supervision of care Care discussed with: Medical Student Procedures: n/a Results interpretation: Verified all documentation Verification and Attestation of Medical Student E/M Service A medical student performed and documented this service in my presence. I reviewed and verified all information documented by the medical student and made modifications to such information, when appropriate. I personally performed the physical exam and medical decision making. Emily Howell, May 05, 2023,20:10 NICKIE DELVALLE May 05, 2023 12:55 EMILY HOWELL DO May 05, 2023 20:10
[2023-05-05 13:04] VITALS: BP 149/77
--- NOTE | 2023-05-05 13:19 | D/C HH Face to Face Order ---
D/C Face to Face Orders Reconcile Patient Problems Problems Reviewed?: Yes Instructions for Patient Via [facility], Patient Instructions/FollowUp: PCP 1 week Physician to follow Patient: [facility] Discharge Diet for Home: No Restrictions Patient Problems: Debility Patient Data-Allergies,Ht & Wt Patient Allergies: Coded Allergies: cortisone (Unverified Allergy, Mild, NAUSEA, 02/08/10) amoxicillin (Unverified Adverse Reaction, Severe, HIVES, 02/08/10) Height (Feet): 5 Height (Inches): 3.00 Weight (Pounds): 140 Home Health Need/Face to Face Date of Face to Face: May 05, 2023 Clinical Findings: Generalized weakness and fatigue, Instability, Muscle weakness I have seen Pt [id number]: Yes Discharged To: Home Diagnosis/Conditions: Debility Patient is Homebound due to: Frank fall risk due to instabilty, Muscle weakness Homebound Status Due to the above stated illness, injury or surgical procedure (medical condition or diagnosis) and associated clinical findings, the patient is homebound because of his/her inability to leave home except with aid of a supportive device and/or person AND leaving the home requires a considerable and taxing effort or is medically contraindicated. Pt req the following assistanc: [facility] Nursing Orders Home Health Services Order: Nursing Services, [employer]-Evaluate & Treat, Physical Therapy-Evaluate & Treat Home Health Infusion Therapy Line Start Date: May 03, 2023 Certify Stmt I certify that this patient is under my care and that I, a nurse practitioner or a physician; a syrup mixer assistant working with me, had a face to face encounter that - meets the physician face to face encounter requirements with this patient as dated. DONAVAN HOWELL DO May 05, 2023 13:18
--- NOTE | 2023-05-07 09:00 | Physician Query Clarification ---
PQ-Further Specificity Admission/Discharge Admission Date: May 04, 2023 at 11:42 Discharge Date: May 05, 2023 at 12:30 Dr. rByant, The medical record reflects the following clinical scenario: History/Risk Factors: DM w/hypoglycemia, UTI Clinical Findings: body of DS states, "She reports that she is in between PCPs due to a recent ret irement and has not taken her insulin for approximately 1 week." and DS diagnosis states, "Severe hypoglycemia likely due to oral hypoglycemic agent or nonpurposeful overdose of insulin." Treatment: IV DSNS, IV Hydralazine Question: Can you further specify if her hypoglycemia is due to insulin overdose or insulin underdosing per the clinical indicators above? Please document a response in the Progress Notes or Discharge Summary. 1. Diabetic hypoglycemia d/t insulin underdosing 2. Diabetic hypoglycemia d/t insulin overdosing 3. Other, with explanation of the clinical findings. 4. Clinically undetermined, no explanation for the clinical findings. PHYSICIAN RESPONSE Can you specify per above: 1 In responding to this query, please exercise your independent professional judgment. The purpose of this communication is to more accurately reflect the complexity of your patients condition. The fact that a question is asked does not imply that any particular answer is desired or expected. Thank you for your timely response to this clarification. Requestors name: [employer] THIS PHYSICIAN QUERY FORM IS A PERMANENT PART OF THE MEDICAL RECORD RANCHO SALINAS May 07, 2023 09:00 DONAVAN BRYANT DO May 07, 2023 10:35
== END 2023-05-05 12:30 | disposition home health service (06) | DRG 638 ==
LOC: EDUNIT# 19:01 → ER 19:02 → INTOOBSV 21:15 → ICU 21:15 → 4TH 05-03 15:22 → OBSVTOIN 05-04 11:42
PROVIDERS: ADMIT Internal Medicine; ATTEND Internal Medicine
DX: E11.649 Type 2 diabetes mellitus with hypoglycemia without coma (principal); N39.0 Urinary tract infection, site not specified; T38.3X6A Underdosing of insulin and oral hypoglycemic [antidiabetic] drugs, initial encounter; Z91.128 Patient's intentional underdosing of medication regimen for other reason; I16.0 Hypertensive urgency; I10 Essential (primary) hypertension; R68.0 Hypothermia, not associated with low environmental temperature; E78.00 Pure hypercholesterolemia, unspecified; F41.9 Anxiety disorder, unspecified; F32.A Depression, unspecified; E03.9 Hypothyroidism, unspecified; B96.20 Unspecified Escherichia coli [E. coli] as the cause of diseases classified elsewhere; M19.90 Unspecified osteoarthritis, unspecified site; Z79.4 Long term (current) use of insulin; Z79.84 Long term (current) use of oral hypoglycemic drugs; Z79.1 Long term (current) use of non-steroidal anti-inflammatories (NSAID); Z79.899 Other long term (current) drug therapy; Z88.1 Allergy status to other antibiotic agents; Z91.09 Other allergy status, other than to drugs and biological substances
CPT/HCPCS: 36410; 36415; 70450; 76937; 80053; 81000; 82010; 82150; 82947; 83036; 83605; 83690; 83735; 85025; 87040; 87077; 87088; 87186; 93041; G0378

== ENCOUNTER 2023-08-29 01:29 | Emergency (ER) | payer MEDICARE, OTHER ==
[~2023-08-29] VITALS: Ht 160 cm; Wt 70.6 kg
[~2023-08-29 01:29] MED LIST changes: +CEPH500T PO; +INSU100I14 SQ; +INSU100I32 SQ; +NEED-474 MC
[2023-08-29] MEDS ORDERED: METF-865 (01:43)
[2023-08-29] MEDS ORDERED: DICL25TA9 (01:43)
[2023-08-29] MEDS ORDERED: SITA100T12 (01:43)
[2023-08-29] MEDS ORDERED: ASPIRIN 81 MG CHEWABLE TABLET PO ONE (01:45)
[2023-08-29] MEDS: NITROGLYCERIN 0.4 MG SL TABLETS BTL 25'S SL PRN ×2 (01:52→01:58)
[2023-08-29 01:55] LABS: BASOPHILS % (AUTO) 1 % (0-10); EOSINOPHILS # (AUTO) 0.2 10^3/uL (0.0-0.3); EOSINOPHILS % (AUTO) 3 % (0-10); HEMATOCRIT 44 % (35-52); HEMOGLOBIN 14.7 g/dL (11.5-16.0); LYMPHOCYTES % (AUTO) 31 % (12-44); MEAN CORPUSCULAR HEMOGLOBIN 29 pg (25-34); MEAN CORPUSCULAR HGB CONC 34 g/dL (32-36); MEAN CORPUSCULAR VOLUME 88 fL (80-99); MEAN PLATELET VOLUME 9.8 fL (9.0-12.2); MONOCYTES # (AUTO) 0.6 10^3/uL (0.0-1.0); MONOCYTES % (AUTO) 9 % (0-12); NEUTROPHILS # (AUTO) 3.6 10^3/uL (1.8-7.8); NEUTROPHILS % (AUTO) 56 % (42-75); PLATELET COUNT 224 10^3/uL (130-400); WHITE BLOOD COUNT 6.4 10^3/uL (4.3-11.0)
--- NOTE | 2023-08-29 02:03 | ED Cardiac General ---
History of Present Illness General Chief Complaint: Chest Pain Stated Complaint: CP Nursing Triage Note: SHARP CHEST PAIN X1HR Source: patient (EXTREMELY DIFFICULT HISTORIAN AND GIVES MUCH CONFLICTING / INCONSISTENT INFORMATION ) History of Present Illness Date Seen by Provider: Aug 29, 2023 Time Seen by Provider: 01:43 Initial Comments PT ARRIVES VIA POV FROM HOME WITH SON--SON LIVES WITH PT ON ARRIVAL, PT REPORTED TO RN THAT SHE BEGAN HAVING SHARP CHEST PAIN 1 HOUR AGO, WHILE GETTING READY FOR BED ON MY INTERVIEW, PT STATES SHE NEVER HAD CHEST PAIN AT ANY TIME. SHE STATES TO ME THAT SHE WAS GETTING READY FOR BED AND HER RIGHT ARM STARTED SHAKING. SHE CHANGES HER STORY MULTIPLE TIMES WHILE TRYING TO OBTAIN HER HISTORY ABOUT WHAT BROUGHT HER TO ER TONIGHT SHE LATER STATES SHE HAS PAIN BETWEEN HER SHOULDER BLADES AND IN THE BACK OF HER NECK--THEN IN THE NEXT SENTENCE SHE STATES SHE DOES NOT HAVE ANY NECK OR BACK PAIN AND NEVER DID HAVE. SHE DENIES ANY ALL ALL OTHER SYMPTOMS ON QUESTIONING NO SHORTNESS OF BREATH NO NAUSEA/VOMITING NO SWEATS NO DIZZINESS NO SYNCOPE NO PALPITATIONS NO SWELLING IN LEGS/FEET OR PAIN IN CALVES NO NUMBNESS OR TINGLING OR PROBLEMS MOVING HER ARMS OR LEGS, OR PROBLEMS WALKING OR TALKING OR SWALLOWING NO HEADACHE NO VISION CHANGES NO FEVER OR RECENT ILLNESS NO COUGH PT STATES NO HISTORY OF SIMILAR PT HAS HTN, IS DIABETIC, HAS HYPOTHYROIDISM PT NEVER CHECKS HER BLOOD SUGAR. PT HAD A NORMAL CARDIAC CATH 09/[address] MARY PALAFOX po CARPENTRY SUPERVISOR: No PCP [facility] Allergies and Home Medications Allergies Coded Allergies: cortisone (Unverified Allergy, Mild, NAUSEA, 02/08/10) amoxicillin (Unverified Adverse Reaction, Severe, HIVES, 02/08/10) Patient Home Medication List Home Medication List Reviewed: Yes Amlodipine Besylate (Amlodipine Besylate) 5 Mg Tablet, 5 MG PO DAILY Prescribed by: DONAVAN HOWELL on 05/05/23 1139 Diclofenac Sodium (Diclofenac Sodium) 25 Mg Tablet., (Reported) Entered as Reported by: JANINE CANELA on 08/29/23142 Last Action: New Order Metformin HCl (Metformin HCl ER) 500 Mg Tab.er.24h, (Reported) Entered as Reported by: JANINE CANELA on 08/29/23142 Last Action: New Order Sitagliptin Phosphate (Januvia) 100 Mg Tablet, (Reported) Entered as Reported by: JANINE CANELA on 08/29/23 0143 Last Action: New Order Discontinued Medications Cephalexin (Cephalexin) 500 Mg Tablet, 500 MG PO TID Discontinued Reason: No Longer Taking Prescribed by: DONAVAN HOWELL on 05/05/231138 Last Action: Discontinued Insulin Aspart (Novolog Flexpen) 100 Unit/Ml (3 Ml) Solution, 3 UNITS SQ AC PRN for HYPERGLYCEMIA Discontinued Reason: No Longer Taking Prescribed by: DONAVAN HOWELL on 05/05/231138 Last Action: Discontinued Insulin Degludec (Tresiba Flextouch U-100) 100 Unit/Ml (3 Ml) Insuln.pen, 10 UNI T SQ HS PRN for HYPERGLYCEMIA Discontinued Reason: No Longer Taking Prescribed by: DONAVAN HOWELL on 05/05/231138 Last Action: Discontinued [employer], Insulin Disposable (Advocate Pen [employer]) 31 Gauge X 5/16" Dis.needle, EACH MC ACHS, (DME) Discontinued Reason: No Longer Taking Prescribed by: DONAVAN HOWELL on 05/05/231138 Last Action: Discontinued Review of Systems Review of Systems Constitutional: no symptoms reported EENTM: No Symptoms Reported Respiratory: No Symptoms Reported Cardiovascular: See HPI Gastrointestinal: No Symptoms Reported Genitourinary: No Symptoms Reported Musculoskeletal: see HPI Skin: no symptoms reported Psychiatric/Neurological: See HPI Endocrine: No Symptoms Reported Hematologic/Lymphatic: No Symptoms Reported Past Ltsdcue-Xulysy-Iplbda Hx Patient Social History Tobacco Use?: No Substance use?: No Alcohol Use?: No Pt feels they are or have been: No Immunizations Up To Date Tetanus Booster (TDap): Unknown First/Initial COVID19 Vaccinat: X2 Second COVID19 Vaccination Lamberto: X2 Third COVID19 Vaccination Date: X2 Seasonal Allergies Seasonal Allergies: No Past Medical History Surgery/Hospitalization HX: HEART CATH, APPENDECTOMY, HYSTERECTOMY, FOOT SX HTN, HLD, ANXIETY, DEPRESSION, HYPOTHRYOIDISM, DIABETES Surgeries: Yes (HEART CATH 09/2011--NORMAL; FOOT SURGERY) Appendectomy, Cardiac, Hysterectomy, Orthopedic Respiratory: No Cardiac: Yes High Cholesterol, Hypertension Neurological: No Reproductive Disorders: No Sexually Transmitted Disease: No Genitourinary: Yes Bladder Infection Gastrointestinal: No Musculoskeletal: Yes (ARTHRITIS) Arthritis Endocrine: Yes Diabetes, Non-Insulin dep HEENT: No Cancer: No Psychosocial: Yes Anxiety, Depression Integumentary: No Blood Disorders: No Adverse Reaction/Blood Tranf: No Family Medical History No Pertinent Family Hx Physical Exam Vital Signs Vital Signs - First Documented 08/29/23 01:37 Temp 37.6 Pulse 104 Resp 20 B/P (MAP) 196/101 (132) Pulse Ox 99 O2 Delivery Room Air Capillary Refill : Less Than 3 Seconds Height, Weight, BMI Height: 5'3.00" Weight: 140lbs. oz. 63.634145zd; 27.00 BMI Method:Stated General Appearance: No Apparent Distress, WD/WN, Anxious HEENT: PERRL/EOMI Neck: Full Range of Motion, Normal Inspection, Non Tender, Supple; No JVD Respiratory: Chest Non Tender, Normal Breath Sounds, No Accessory Muscle Use, No Respiratory Distress Cardiovascular: Regular Rate, Rhythm, No Edema, No JVD, No Murmur, Normal Peripheral Pulses Gastrointestinal: No Pulsatile Mass, Non Tender, Soft Extremity: Normal Capillary Refill, Normal Inspection, Normal Range of Motion, Non Tender, No Calf Tenderness, No Pedal Edema Neurologic/Psychiatric: Alert, Oriented x3, No Motor/Sensory Deficits, coding compliance specialist II- XII Norm as Tested, Other (ANXIOUS) Skin: Normal Color, Warm/Dry; No Rash Progress/Results/Core Measures Results/Orders Lab Results Laboratory Tests Test 08/29/23 01:43 08/29/23 01:52 Range/Units White Blood Count 6.4 4.3-11.0 10^3/uL Red Blood Count 5.02 3.80-5.11 10^6/uL Hemoglobin 14.7 11.5-16.0 g/dL Hematocrit 44 35-52 % Mean Corpuscular Volume 88 80-99 fL Mean Corpuscular Hemoglobin 29 25-34 pg Mean Corpuscular Hemoglobin Concent 34 32-36 g/dL Red Cell Distribution Width 12.9 10.0-14.5 % Platelet Count 224 130-400 10^3/uL Mean Platelet Volume 9.8 9.0-12.2 fL Immature Granulocyte % (Auto) 0 % Neutrophils (%) (Auto) 56 42-75 % Lymphocytes (%) (Auto) 31 12-44 % Monocytes (%) (Auto) 9 0-12 % Eosinophils (%) (Auto) 3 0-10 % Basophils (%) (Auto) 1 0-10 % Neutrophils # (Auto) 3.6 1.8-7.8 10^3/uL Lymphocytes # (Auto) 2.0 1.0-4.0 10^3/uL Monocytes # (Auto) 0.6 0.0-1.0 10^3/uL Eosinophils # (Auto) 0.2 0.0-0.3 10^3/uL Basophils # (Auto) 0.0 0.0-0.1 10^3/uL Immature Granulocyte # (Auto) 0.0 0.0-0.1 10^3/uL Prothrombin Time 14.1 12.2-14.7 SEC INR Comment 1.1 0.8-1.4 Activated Partial Thromboplast Time 27 24-35 SEC D-Dimer 0.54 H 0.00-0.49 UG/ML Sodium Level 138 135-145 MMOL/L Potassium Level 3.5 L 3.6-5.0 MMOL/L Chloride Level 105 98-107 MMOL/L Carbon Dioxide Level 20 L 21-32 MMOL/L Anion Gap 13 5-14 MMOL/L Blood Urea Nitrogen 25 H 7-18 MG/DL Creatinine 0.98 0.60-1.30 MG/DL Estimat Glomerular Filtration Rate 59 BUN/Creatinine Ratio 26 Glucose Level 186 H 70-105 MG/DL Calcium Level 9.6 8.5-10.1 MG/DL Corrected Calcium 9.3 8.5-10.1 MG/DL Magnesium Level 1.7 1.6-2.4 MG/DL Total Bilirubin 0.4 0.1-1.0 MG/DL Aspartate Amino Transf (AST/SGOT) 18 5-34 U/L Alanine Aminotransferase (ALT/SGPT) 12 0-55 U/L Alkaline Phosphatase 59 40-136 U/L Total Creatine Kinase 71 29-168 U/L Creatine Kinase MB 0.9 <6.6 NG/ML Myoglobin 18.5 10.0-92.0 NG/ML Troponin I < 0.028 <0.028 NG/ML B-Type Natriuretic Peptide 18.0 <100.0 PG/ML Total Protein 7.4 6.4-8.2 GM/DL Albumin 4.4 3.2-4.5 GM/DL Amylase Level 84 25-125 U/L Lipase 160 H 8-78 U/L Glucometer 187 H 70-110 MG/DL My Orders Orders - GLORIA,LONNIE K DO Ekg Tracing (08/29/23 01:36) Cbc And Automated Diff (08/29/23 01:45) Magnesium (08/29/23 01:45) Chest 1 View, Ap/Pa Only (08/29/23 01:45) Comprehensive Metabolic Panel (08/29/23 01:45) Myoglobin Serum (08/29/23 01:45) Protime With Inr (08/29/23 01:45) Partial Thromboplastin Time (08/29/23 01:45) O2 (08/29/23 01:45) Monitor-Rhythm Ecg Trace Only (08/29/23 01:45) Ed Iv/Invasive Line Start (08/29/23 01:45) Creatine Kinase (08/29/23 01:45) Creatine Kinase Mb (08/29/23 01:45) Lipase (08/29/23 01:45) Amylase (08/29/23 01:45) Bnp Jose (08/29/23 01:45) Fibrin Degradation Products (08/29/23 01:45) Troponin I Jose (08/29/23 01:45) Nitroglycerin 0.4 Mg Btl 25's (Nitroglyc (08/29/23 01:45) Aspirin Chewable Tablet (Aspirin Chewabl (08/29/23 01:45) Ct Selena Chest/Noang Abd-Pelv W (08/29/23 02:30) Iohexol Injection (Omnipaque 350 Mg/Ml 1 (08/29/23 03:15) Received Contrast (Hold Metformin- Contr (08/29/23 03:15) Sodium Chloride Flush (Catheter Flush Sy (08/29/23 03:15) Ns (Ivpb) 100 Ml (Sodium Chloride 0.9% 1 (08/29/23 03:15) Medications Given in ED Current Medications Medications Dose Ordered Sig/Zari Route Start Time Stop Time Status Last Admin Dose Admin Aspirin 324 mg ONCE ONCE PO 08/29/23 01:45 08/29/23 02:01 DC 08/29/23 01:52 324 MG Iohexol 100 ml ONCE ONCE IV 08/29/23 03:15 08/29/23 03:16 DC 08/29/23 03:14 80 ML Nitroglycerin 0.4 mg UD PRN SL 08/29/23 01:45 08/29/23 01:58 0.4 MG Sodium Chloride 10 ml NEEDED PRN IV 08/29/23 03:15 08/29/23 03:14 10 ML Sodium Chloride 100 ml ONCE ONCE IV 08/29/23 03:15 08/29/23 03:16 DC 08/29/23 03:14 80 ML Vital Signs/I&O 08/29/23 01:37 Temp 37.6 Pulse 104 Resp 20 B/P (MAP) 196/101 (132) Pulse Ox 99 O2 Delivery Room Air Blood Pressure Mean: 132 Progress Progress Note : Progress Note VITALS ON ARRIVAL: TEMP 37.6=99.6, H R 104, RR 20 BP 196/101, O2 SAT 99% ON ROOM AIR GIVEN: -ASPIRIN -NTG X 1 LABS: -CBC NORMAL -CMP WITH BUN 25, CR 0.98, GLU 186, LIPASE 160, OTHERWISE NORMAL -MG NORMAL -AMYLASE NORMAL / LIPASE 160 -TROPONIN NEGATIVE -BNP NORMAL -PT/PTT/INR NORMAL -D-DIMER 0.54 EKG IS UNREMARKABLE AND UNCHANGED FROM PREVIOUS CXR IS UNREMARKABLE, PENDING RADIOLOGIST REVIEW CT ANGIOGRAM CHEST/ABDOMEN-PELVIS--+ GALLSTONES, NO P.E. OR OTHER ACUTE PROCESS 0410--PT IS GETTING ANXIOUS AND IS READY TO GO HOME, STATES SHE IS FINE. CT RESULTS ARE STILL PENDING AT THIS TIME VITALS STABLE, AND PT HAD NO COMPLAINTS OF ANY KIND FOR THE ENTIRE ER STAY. DISCUSSED TEST RESULTS, WITH PT AND SON, ANTICIPATED COURSE, NEED FOR FOLLOW UP AND RETURN PRECAUTIONS REVIEWED PRIOR RECORDS, INCLUDING ER VISITS, ADMITS/H&P'S/CONSULTS/DISCHARGE SUMMARIES, TESTS/PROCEDURES. Initial ECG Impression Date: Aug 29, 2023 Initial ECG Impression Time: 01:47 Initial ECG Rate: 94 Initial ECG Rhythm: Normal Sinus Initial ECG Intervals: Normal (PVC) Initial ECG Impression: Normal Initial ECG Comparisson: Unchanged Comment INTERPRETED BY ME Diagnostic Imaging Comments CXR--NO ACUTE PROCESS, PENDING RADIOLOGIST REVIEW CT ANGIOGRAM CHEST / ABDOMEN-PELVIS--PER [facility] VIA FAX AT [phone] -NO P.E. OR ACUTE CHEST FINDINGS - + GALLSTONES -SMALL HIATAL HERNIA -COLONIC DIVERTICULOSIS -NO ACUTE INTRA-ABDOMINAL OR PELVIC PROCESS Reviewed: Reviewed by Me Departure Impression Primary Impression: Hypertension Additional Impressions: Type 2 diabetes mellitus Chest pain Gallstones Disposition: HOME, SELF-CARE Condition: Stable Departure-Patient Inst. Decision time for Depature: 05:05 Referrals: [facility] (PCP/Family) Primary Care Physician Patient Instructions: Chest Pain (DC), Diabetes in Older Adults, High Blood Pressure (DC), Gallstones ED Add. Discharge Instructions: TYLENOL NEEDED FOR PAIN TAKE YOUR MEDICATIONS PRESCRIBED FOLLOW UP WITH [facility] THIS WEEK FOR FURTHER CARE--CALL IN THE MORNING TO SCHEDULE AN APPOINTMENT RETURN TO ER IF YOUR SYMPTOMS RETURN All discharge instructions reviewed with patient and/or family. Voiced understanding. LONNIE CASTRO DO Aug 29, 2023 02:03
[2023-08-29 02:06] LABS: INR 1.1 (0.8-1.4); PROTHROMBIN TIME PATIENT 14.1 SEC (12.2-14.7)
[2023-08-29 02:08] LABS: ALBUMIN 4.4 GM/DL (3.2-4.5); CHLORIDE 105 MMOL/L (98-107); POTASSIUM 3.5 MMOL/L (3.6-5.0); SODIUM 138 MMOL/L (135-145)
[2023-08-29 02:09] LABS: AMYLASE 84 U/L (25-125); CALCIUM 9.6 MG/DL (8.5-10.1); FIBRIN DEGRADATION PRODUCTS 0.54 UG/ML (0.00-0.49)
[2023-08-29 02:10] LABS: GLUCOSE 186 MG/DL (70-105)
[2023-08-29 02:11] LABS: TOTAL PROTEIN 7.4 GM/DL (6.4-8.2)
[2023-08-29 02:12] LABS: BILIRUBIN,TOTAL 0.4 MG/DL (0.1-1.0); CARBON DIOXIDE 20 MMOL/L (21-32)
[2023-08-29 02:14] LABS: ALKALINE PHOSPHATASE 59 U/L (40-136); CREATININE SERUM 0.98 MG/DL (0.60-1.30); GFR ESTIMATED 59
[2023-08-29 02:15] LABS: BUN/CREATININE RATIO 26
[2023-08-29 02:17] LABS: ALANINE AMINOTRANSFERASE 12 U/L (0-55); MAGNESIUM 1.7 MG/DL (1.6-2.4)
[2023-08-29 02:18] LABS: CREATINE KINASE 71 U/L (29-168); LIPASE 160 U/L (8-78)
[2023-08-29 02:25] LABS: CREATINE KINASE MB 0.9 NG/ML (<6.6)
[2023-08-29] MEDS ORDERED: CATHETER FLUSH 10 ML SYR IV PRN (03:15)
[2023-08-29] MEDS ORDERED: NS 100 ML (IVPB) BAG IV ONE (03:15)
[2023-08-29] MEDS ORDERED: HOLD METFORMIN - RECEIVED CONTRAST 20 ML VIAL IV SCH (03:15)
[2023-08-29] MEDS ORDERED: IOHEXOL 350 MG/ML 100 ML (OMNIPAQUE 350) VIAL IV ONE (03:15)
[2023-08-29 05:08] VITALS: BP 156/77
--- NOTE | 2023-08-29 06:31 | Diagnostic Imaging Report ---
CTA chest, abdomen and pelvis Thin axial sections through the chest, abdomen and pelvis are obtained following intravenous contrast bolus. Multiplanar MIP images were reconstructed and reviewed. All CT scans use one or more of the following dose optimizing techniques: automated exposure control, MA and/or KvP adjustment based on patient size and exam type or iterative reconstruction. INDICATION: Chest pain, back pain, elevated lipase level and d-dimer. COMPARISON: None available. FINDINGS: CTA CHEST: No pulmonary emboli. Normal caliber thoracic aorta without dissection. No mediastinal, supraclavicular or axillary lymphadenopathy. Heart is normal in size without pericardial effusion. No pleural effusion or pneumothorax. No pneumonia or edema. No suspicious pulmonary nodules. No concerning abnormality in the regional skeleton. CT ABDOMEN PELVIS WITH: No free intraperitoneal air or fluid. No loculated fluid collection. The liver, spleen, pancreas and adrenals are normal. Cholelithiasis without features of acute cholecystitis. No biliary duct dilation. No renal mass or obstructive uropathy. Urinary bladder is normal. Hysterectomy. No adnexal mass. No bowel obstruction or pericolonic inflammatory change. Stomach is filled with fluid and has no wall thickening. Normal caliber abdominal aorta without dissection. No abdominal or pelvic lymphadenopathy. No worrisome focal osseous abnormality regional skeleton. IMPRESSION: 1. No acute abnormality in the chest, abdomen or pelvis. 2. Cholelithiasis. 3. Findings are in agreement with the preliminary report. Dictated by: Dictated on workstation # [id number]
--- NOTE | 2023-08-29 06:50 | Diagnostic Imaging Report ---
INDICATION: Chest pain TECHNIQUE: Single view chest 2:03 AM CORRELATION STUDY: 06/05/2021 FINDINGS: The heart size, mediastinal configuration and pulmonary vascularity are within normal limits. The lungs are clear with no consolidating infiltrate. There is no significant effusion or pneumothorax. IMPRESSION: 1. Negative appearing single view chest. Dictated by: Dictated on workstation # [id number]
== END 2023-08-29 05:11 | disposition home or self-care (01) ==
LOC: EDUNIT# 01:29 → ER 01:31
DX: R07.9 Chest pain, unspecified (principal); E11.9 Type 2 diabetes mellitus without complications; I10 Essential (primary) hypertension; K80.20 Calculus of gallbladder without cholecystitis without obstruction
CPT/HCPCS: 36415; 71045; 71275; 74177; 80053; 82150; 82550; 82553; 82947; 83690; 83735; 83874; 83880; 84484; 85025; 85379; 85610; 85730; 93005; 93041